=== PATIENT | male | born 1990 | race Caucasian/White ===

== ENCOUNTER 2016-12-30 12:05 | Observation (INO) ==
[2016-12-30] MEDS ORDERED: Ondansetron 4 MG/2 ML VIAL IVP ONE (15:32)
[2016-12-30] MEDS ORDERED: 0.9 % Sodium Chloride 1,000 ML IVC ONE (15:32)
--- NOTE | 2016-12-30 15:36 | Emergency Department Note ---
Disposition Clinical Impression: Nausea vomiting and diarrhea, Dehydration Leukocytosis Qualifiers: Leukocytosis type: unspecified Qualified Code(s): D72.829 - Elevated white blood cell count, unspecified Disposition: Admitted As Inpatient Condition: Fair Referrals: Joseph Carpenter DO [Primary Care Provider] - Forms: ED Satisfaction Letter Time of Disposition: 17:46 Nausea/Vomiting/Diarrhea HPI - General Chief complaint: ED Nausea/Vomiting/Diarrhea Stated complaint: seizures Time Seen by Provider: 12/30/16 15:27 Source: patient Mode of arrival: wheelchair Limitations: no limitations Nursing Notes Reviewed: Yes Vital Signs Reviewed: Yes - History of Present Illness HPI Narrative: 26-year-old history seizure disorder whose had vomiting and diarrhea for the last several hours. Patient has a history of seizure disorder is on Keppra and Vimpat and states he feels like he is going to have a seizure. Patient is pale and appears to be dry on arrival. He does answer questions appropriately. Patient states he just completed Augmentin 4 days ago. Pt Subjective Complaint: nausea, vomiting, diarrhea Onset (ago): hour(s) Description of emesis: food contents Description of Diarrhea: water If pain, Location of pain: diffuse Quality: cramping Consistency: intermittent Improves with: nothing Worsens with: eating Associated symptoms: Denies: fever/chills - Related Data Home Medications Medication Instructions Recorded Confirmed Lacosamide [Vimpat] 100 mg PO BID 12/17/16 12/17/16 LevETIRAcetam [Keppra] 1,500 mg PO BID 12/17/16 12/17/16 Omeprazole [PriLOSEC] 20 mg PO DAILY 12/17/16 12/17/16 Paroxetine [Paxil] 20 mg PO DAILY 12/17/16 12/17/16 Promethazine [Phenergan] 25 mg PO Q6H PRN 12/17/16 12/17/16 Previous Rx's Medication Instructions Recorded Amoxicillin/Clavulanate [Augmentin] 875 mg PO BIDWM #14 tablet 12/19/16 Nicotine Patch [Nicoderm] 14 mg TD DAILY PRN 12/19/16 Allergies Allergy/AdvReac Type Severity Reaction Status Date / Time alprazolam [From Xanax] Allergy Seizure Verified 12/17/16 12:28 decongestant AdvReac Vomiting Uncoded 12/17/16 12:28 All systems ED: reviewed and negative except as stated. Constitutional: Denies: fever, chills, weakness, weight change Eyes: Denies: eye pain, eye discharge, vision change ENT ED: Denies: ear pain, throat pain, dental pain, hearing loss, epistaxis, congestion, dysphagia Cardiovascular: Denies: chest pain, palpitations, dyspnea on exertion, edema, syncope Respiratory: Denies: cough, dyspnea, wheezes, hemoptysis, stridor Gastrointestinal: Reports: nausea, vomiting, diarrhea. Denies: abdominal pain, constipation, hematemesis, melena, hematochezia Genitourinary: Denies: urgency, dysuria, frequency, hematuria Musculoskeletal: Denies: back pain, neck pain, arthralgia, myalgia Integumentary: Denies: rash, abrasion, lesions Neurological: Reports: headache (Had a headache last night and none today.), other (States he feels like he is going to have a seizure). Denies: weakness, numbness, paresthesias, confusion, abnormal gait, vertigo Psychiatric: Denies: anxiety, depression, suicidal thoughts, homicidal thoughts , auditory hallucinations, visual hallucinations Endocrine: Denies: fatigue Hematological/Lymphatic: Denies: easy bleeding, easy bruising Allergic/Immunologic: Denies: facial swelling, urticaria Past Medical History - Past Medical History Medical history: Reports: seizures Surgical history: Reports: no surgical history Psychiatric history: Reports: anxiety, panic disorder - Social History Smoking Status: Current every day smoker Smokeless Tobacco Status: No Alcohol use: Reports: none Drug use: Reports: marijuana, prescription drug abuse Physical Exam - General Limitations: no limitations General appearance: alert, in no apparent distress - Head Head exam: atraumatic, normocephalic, normal inspection - Eye Eye exam: Present: normal appearance, PERRL, EOMI - ENT ENT exam: mucous membranes dry - Neck Neck exam: Present: normal inspection, full ROM, trachea midline - Chest Chest inspection: Present: normal inspection, symmetric chest wall rise - Respiratory Respiratory exam: Present: normal lung sounds bilaterally - Cardiovascular Cardiovascular exam: Present: regular rate, normal rhythm, normal heart sounds - Abdominal Exam Abdominal exam: Present: soft, Non-Tender. Absent: tenderness, distention, guarding, rebound, rigidity - Extremities Exam Extremities exam: Present: normal inspection, full ROM. Absent: tenderness, pedal edema - Expanded Lower Extremity Exam Neurovascular/Tendon exam: Absent: motor deficit, sensory deficit, tendon deficit Gait: not tested/not observed - Back Exam Back exam: Present: normal inspection, full ROM. Absent: tenderness - Neurological Exam Neurological exam: Present: alert, oriented X3 - Psychiatric Psychiatric exam: Present: normal affect, normal mood - Skin Skin exam: Present: warm, dry, intact, normal color Course - Reevaluation(s) Reevaluation #1: 26-year-old with multiple episodes of nausea vomiting diarrhea who arrives pale and appeared dehydrated. White count elevated at 27. He's had severe diarrhea. Patient just completed Augmentin. Concern for Clostridium difficile. Leukocytosis could be reactive. Time: 16:41 - Consultations Consultation #1: Discussed with , admit-would not give antibiotic coverage for C. difficile until stool cultures sent. Time: 17:45 Vital Signs Temperature 97.4 F L 12/30/16 12:13 Pulse Rate 92 12/30/16 12:13 Respiratory Rate 16 12/30/16 12:13 Blood Pressure 160/108 12/30/16 12:13 O2 Sat by Pulse Oximetry 98 12/30/16 12:13 Temperature 97.4 F L 12/30/16 12:13 Pulse Rate 101 12/30/16 15:31 Respiratory Rate 18 12/30/16 15:31 Blood Pressure 153/103 12/30/16 15:31 O2 Sat by Pulse Oximetry 100 12/30/16 15:31 Oxygen Delivery Oxygen Delivery Room Air Nausea/Vomiting/Diarrhea - Lab Data Result diagrams: 12/30/16 15:45 12/30/16 15:45 Lab Results 12/30/16 12/30/16 12/30/16 Range/Units 15:45 15:45 17:13 WBC 27.3 H (4.3-11.1) K/mcL RBC 4.91 (4.19-5.50) M/mcL Hgb 15.5 (12.9-16.9) g/dL Hct 45.4 (37.5-50.1) % MCV 92.5 (83.0-100.0) fL MCH 31.6 (28.0-33.3) pg MCHC 34.1 (31.6-35.5) g/dL RDW 12.8 (11.5-14.5) % Plt Count 197 (140-400) K/mcL MPV 9.8 (9.4-12.4) fL Immature Gran % 1.3 (0-4) % Seg Neutrophils % 89.2 % Lymphocytes % 5.7 % Monocytes % 3.5 % Eosinophils % 0.0 % Basophils % 0.3 % Neutrophils # 24.4 H (1.6-8.9) K/mcL Lymphocytes # 1.6 (0.6-4.6) K/mcL Monocytes # 1.0 (0.0-1.3) K/mcL Eosinophils # 0.0 (0.0-0.6) K/mcL Basophils # 0.1 (0.0-0.2) K/mcL Platelet Estimate Normal (Normal) Sodium 141 (136-145) mEq/L Potassium 3.8 (3.5-4.5) mEq/L Chloride 107 (98-109) mEq/L Carbon Dioxide 20 (19-29) mEq/L BUN 14 (8-26) mg/dL Creatinine 0.90 (0.72-1.25) mg/dL Est GFR ( Amer) > 60 (> 60) Est GFR (Non-Af Amer) > 60 (> 60) BUN/Creatinine Ratio 16 (6-26) Glucose 149 H (70-99) mg/dL Calculated Osmolality 295 (280-300) Calcium 9.7 (8.6-10.8) mg/dL Urine Color Yellow (Yellow) Urine Clarity Clear (Clear) Urine pH 8.0 (5.0-8.0) pH Units Ur Specific Vian 1.023 (1.010-1.025) Urine Protein Negative (Neg-Trace) mg/dL Urine Glucose (UA) Normal (Normal) mg/dL Urine Ketones 15 H (Negative) mg/dL Urine Blood Negative (Negative) Urine Nitrite Negative (Negative) Urine Bilirubin Negative (Negative) Urine Urobilinogen Normal (Normal) mg/dL Ur Leukocyte Esterase Negative (Negative) Ur Culture Indicated? NO (NO) - EKG Data EKG attestation: Yes I reviewed and interpreted this EKG. EKG shows normal: sinus rhythm Rate: normal Rhythm: NSR [place]/QRS: normal Interpretation: no acute changes
[2016-12-30 15:53] LABS: Basophils % 0.3 %
[2016-12-30 15:54] LABS: Basophils # 0.1 K/mcL (0.0-0.2); Hematocrit 45.4 % (37.5-50.1); Hemoglobin 15.5 g/dL (12.9-16.9); Immature Granulocytes % 1.3 % (0-4); Lymphocytes # 1.6 K/mcL (0.6-4.6); Lymphocytes % 5.7 %; Mean Corpuscular HGB Conc 34.1 g/dL (31.6-35.5); Mean Corpuscular Hemoglobin 31.6 pg (28.0-33.3); Mean Corpuscular Volume 92.5 fL (83.0-100.0); Mean Platelet Volume 9.8 fL (9.4-12.4); Monocytes % 3.5 %; Neutrophils # 24.4 K/mcL (1.6-8.9); Platelet Count 197 K/mcL (140-400); Red Blood Count 4.91 M/mcL (4.19-5.50); Red Cell Distribution Width 12.8 % (11.5-14.5); Segmented Neutrophils % 89.2 %
[2016-12-30 16:05] LABS: BUN/Creatinine Ratio 16 (6-26); Blood Urea Nitrogen 14 mg/dL (8-26); Calcium 9.7 mg/dL (8.6-10.8); Carbon Dioxide 20 mEq/L (19-29); Chloride 107 mEq/L (98-109); Glucose 149 mg/dL (70-99); Osmolality,Calculated 295 (280-300); Potassium 3.8 mEq/L (3.5-4.5); Sodium 141 mEq/L (136-145); eGFR For African Americans > 60 (> 60); eGFR For Non-African Americans > 60 (> 60)
[2016-12-30 16:34] LABS: Platelet Estimate Normal (Normal)
[2016-12-30 17:23] LABS: Bilirubin,Urine Negative (Negative); Blood,Urine Negative (Negative); Clarity,Urine Clear (Clear); Color,Urine Yellow (Yellow); Glucose,Urine (UA) Normal (Normal); Ketones,Urine 15 mg/dL (Negative); Leukocyte Esterase,Urine Negative (Negative); Nitrite,Urine Negative (Negative); Protein,Urine Negative (Neg-Trace); Specific Gravity,Urine 1.023 (1.010-1.025); Urobilinogen,Urine Normal (Normal)
--- NOTE | 2016-12-30 20:27 | Internal Med History&Physical ---
Date of Encounter: 12/30/16 Time of Encounter: 20:23 Assessment and Plan (1) Dehydration Current visit: Yes Status: Acute Patient appears clinically dehydrated likely secondary to nausea vomiting and diarrhea. He has decreased oral intake at this time and has severe retching and nausea which has been treated with IV Zofran in the ED. We will treat him with IV fluids. We will treat nausea with IV Phenergan. (2) Nausea vomiting and diarrhea Current visit: Yes Status: Acute Intractable nausea vomiting and diarrhea could be related to acute gastroenteritis. Given elevated white blood cell count and recent history of antibiotic use C. difficile colitis is also entering the differential. We will check stool C. difficile toxin. We will treat him with IV Phenergan. Nothing by mouth. (3) Cannabis abuse Current visit: No Status: Acute Could be related to his intractable nausea and vomiting. He could be suffering from cannabinoid hyperemesis syndrome. We will advise complete cessation of cannabis use. (4) Generalized anxiety disorder Current visit: No Status: Acute Continue with Paxil. (5) History of epilepsy Current visit: No Status: Acute Continue with Vimpat and Keppra. per old records review Keppra level on 12/17/2016 was 33 which was within the therapeutic range. I will not recheck Keppra levels today. Avoid Ativan 2 to adverse reaction described as seizure. We will use IV phenobarbital for treatment of seizures. (6) Tobacco use Current visit: No Status: Acute Nicotine patch. Internal Medicine - H&P: HPI Chief complaint: Nausea and vomiting Admitted From: Emergency Dept Plans for Post Hospital Care: Home History of present illness: Mr. Guan is a 26 year old male with past medical history significant for anxiety and seizure disorder presented to the hospital for evaluation of nausea and vomiting. He states he had severe nausea that started abruptly this morning , vomiting this afternoon, associated with 3 episodes of diarrhea described as soft bowel movement. He denied any associated seizure today. Denied any provoking factors any sick contacts and unusual foods. He states that he has severe associated anxiety and tingling in both hands. He has had a similar presentation 2 weeks ago when he was admitted to the hospital and her the patient's father's report he was given Ativan which triggered a seizure at that time. He does have an adverse reaction to Xanax which was confirmed by his father to be seizures. A 10 point review of systems otherwise negative except as above. Family history positive for cancer and heart disease in patient's father Social history: he admits to using marijuana regularly, denies alcohol abuse, he smokes 10 cigarettes a day. Past Med Surg Social Fam HX - Past Medical History Medical history: seizures Psychiatric history: anxiety, panic disorder - Past Surgical History Surgical History: no surgical history - Social History Smoking Status: Current every day smoker Smokeless Tobacco Status: No Alcohol use: none Drug use: marijuana, prescription drug abuse Internal Medicine - H&P: Meds Lacosamide [Vimpat] 100 mg PO BID 12/17/16 [History] LevETIRAcetam [Keppra] 1,500 mg PO BID 12/17/16 [History] Omeprazole [PriLOSEC] 20 mg PO DAILY 12/17/16 [History] Paroxetine [Paxil] 20 mg PO DAILY 12/17/16 [History] Promethazine [Phenergan] 25 mg PO Q6H PRN 12/17/16 [History] Nicotine Patch [Nicoderm] 14 mg TD DAILY PRN 12/19/16 [Rx] 3 Allergy/AdvReac Type Severity Reaction Status Date / Time alprazolam [From Xanax] Allergy Seizure Verified 12/17/16 12:28 decongestant AdvReac Vomiting Uncoded 12/17/16 12:28 All Systems PM: A 10-system review of systems was performed and is negative for pertinent findings except as documented above in the HPI. - Constitutional Vitals: Temp Pulse Resp BP Pulse Ox 97.4 F L 77 18 135/86 99 12/30/16 12:13 12/30/16 17:46 12/30/16 19:47 12/30/16 19:47 12/30/16 17:46 General appearance: Present: mild distress, A&O X 3 - Eye Eye exam: Present: PERRL, conjuntiva pink, sclera anicteric Pupils: Present: PERRL - Respiratory Respiratory exam: Present: CTAB. Absent: accessory muscle use, rales, rhonchi, wheezes - Cardiovascular Cardiovascular exam: Present: RRR, +S1, +S2. Absent: diastolic murmur, gallop, rubs, systolic murmur - GI/Abdominal GI/Abdominal exam: Present: normal bowel sounds, soft, no peritoneal signs. Absent: distended, tenderness - Extremities Exam Extremities exam: Present: warm, radial pulses palpable and symmetrical. Absent : calf tenderness, cyanotic, pedal edema - Skin Skin exam: Present: dry, intact Internal Med - H&P Results - Labs CBC & Chem 7: 12/30/16 15:45 12/30/16 15:45
[2016-12-30] MEDS ORDERED: Nicotine 14 MG PATCH.TD24 TD PRN (20:35)
[2016-12-30] MEDS ORDERED: *HR* Morphine 2 MG/ML SYRINGE IVP PRN (20:50)
[2016-12-30] MEDS ORDERED: Naloxone 0.4 MG/ML INJ IVP PRN (20:50)
[2016-12-30] MEDS: *HR* Promethazine 25 MG/ML VIAL IVP PRN (22:29)
[2016-12-30] MEDS: 0.9 % Sodium Chloride 1,000 ML IVC SCH (22:30)
[2016-12-31 06:46] LABS: BUN/Creatinine Ratio 10 (6-26); Blood Urea Nitrogen 8 mg/dL (8-26); Calcium 9.1 mg/dL (8.6-10.8); Carbon Dioxide 20 mEq/L (19-29); Chloride 110 mEq/L (98-109); Glucose 111 mg/dL (70-99); Osmolality,Calculated 289 (280-300); Potassium 3.6 mEq/L (3.5-4.5); Sodium 140 mEq/L (136-145); eGFR For African Americans > 60 (> 60); eGFR For Non-African Americans > 60 (> 60)
[2016-12-31 06:51] LABS: Amphetamine Screen,Urine Negative ng/mL (Cutoff=1000); Barbiturate Screen,Urine Negative ng/mL (Cutoff=200); Benzodiazepines Screen,Urine Negative ng/mL (Cutoff=200); Cannabinoid Screen,Urine Positive ng/mL (Cutoff = 50); Cocaine Screen,Urine Negative ng/mL (Cutoff= 300); Opiate Screen,Urine Negative ng/mL (Cutoff=300); Phencyclidine Screen,Urine Negative ng/mL (Cutoff=25)
[2016-12-31 06:52] LABS: Basophils % 0.2 %; Eosinophils % 0.1 %; Hematocrit 41.4 % (37.5-50.1); Hemoglobin 14.1 g/dL (12.9-16.9); Immature Granulocytes % 0.5 % (0-4); Lymphocytes # 1.6 K/mcL (0.6-4.6); Lymphocytes % 8.4 %; Mean Corpuscular HGB Conc 34.1 g/dL (31.6-35.5); Mean Corpuscular Hemoglobin 31.1 pg (28.0-33.3); Mean Corpuscular Volume 91.2 fL (83.0-100.0); Mean Platelet Volume 9.9 fL (9.4-12.4); Monocytes # 1.2 K/mcL (0.0-1.3); Monocytes % 6.6 %; Neutrophils # 15.5 K/mcL (1.6-8.9); Platelet Count 175 K/mcL (140-400); Red Blood Count 4.54 M/mcL (4.19-5.50); Red Cell Distribution Width 12.8 % (11.5-14.5); Segmented Neutrophils % 84.2 %
[2016-12-31] MEDS: 0.9 % Sodium Chloride 1,000 ML IVC SCH ×2 (07:25→16:14)
[2016-12-31] MEDS: *HR* Promethazine 25 MG/ML VIAL IVP PRN (07:28)
--- NOTE | 2016-12-31 14:01 | Internal Med Progress Note ---
Date of Encounter: 12/31/16 Time of Encounter: 13:51 - Assessment and plan (1) Nausea & vomiting Current Visit: No Status: Acute Assessment and plan: presented with intractable nausea, vomiting and 3 episodes of diarrhea that started morning of presentation. Etiology unknown at this time. Possible acute gastroenteritis, cannabinoid hyperemesis syndrome. WBC 27K, and recently on ATB , c. diff is possible as well. However WBC chronically elevated and no loose stool since presentation, low suspicion for infectious etiology. Sx's improved on 12/31/2016 exam, advance diet to clears, cont IV fluids, IV phenergan. Stool studies pending. Qualifiers: Vomiting type: unspecified Vomiting Intractability: non-intractable Qualified Code(s): R11.2 - Nausea with vomiting, unspecified (2) Leukocytosis Current Visit: Yes Status: Acute Assessment and plan: WBC 27K on arrival; per chart review WBC has been chronically elevated with no previous Hematology work-up. CXR unremarkable, UA not consistent with UTI. No obvious infectious source, afebrile, no tachycardia or hypotension. Hold on ATB. Peripheral blood smear ordered. Hematology consulted. Qualifiers: Leukocytosis type: unspecified Qualified Code(s): D72.829 - Elevated white blood cell count, unspecified (3) Seizure disorder Current Visit: Yes Status: Acute Assessment and plan: per hx. Cont home vimpat and keppra IV for now. Transition to PO when able to tolerate (4) DVT prophylaxis Current Visit: No Status: Acute Assessment and plan: heparin - Time Spent With Patient 25 - 35 minutes - Subjective Interval history: Seen and examined at bedside, says he feels a little better and want to try clear liquids. No loose stool since arrival to ED, he denies ABD pain. Regarding elevated WBC, he has not had previous Hematologic work-up, says he was given an ATB last week when he was here for elevated WBC - Constitutional Vitals: Temp Pulse Resp BP Pulse Ox 98.5 F 98 18 132/77 97 12/31/16 12:00 12/31/16 12:00 12/31/16 12:00 12/31/16 12:00 12/31/16 12:00 General appearance: Present: cachectic, mild distress, A&O X 3 - Head Head exam: Present: atraumatic, normocephalic - Eye Eye exam: Present: PERRL, conjuntiva pink, sclera anicteric Pupils: Present: PERRL - Neck Neck exam general surgery: Present: supple, trachea midline. Absent: lymphadenopathy - Respiratory Respiratory exam: Present: CTAB. Absent: accessory muscle use, rales, rhonchi, wheezes - Cardiovascular Cardiovascular exam: Present: RRR, +S1, +S2. Absent: diastolic murmur, gallop, rubs, systolic murmur - GI/Abdominal GI/Abdominal exam: Present: normal bowel sounds, soft, no peritoneal signs. Absent: distended, tenderness - Extremities Exam Extremities exam: Present: warm, radial pulses palpable and symmetrical. Absent : calf tenderness, cyanotic, pedal edema - Neurological Exam Neurological exam: Present: CN II-XII intact, oriented X3, no focal deficits. Absent: pronater drift, facial droop, speech deficit - Skin Skin exam: Present: dry, intact Internal Medicine: Result - Labs CBC & Chem 7: 12/31/16 06:22 12/31/16 06:22 Labs: Short CBC 12/31/16 Range/Units 06:22 WBC 18.4 H (4.3-11.1) K/mcL Hgb 14.1 (12.9-16.9) g/dL Hct 41.4 (37.5-50.1) % Plt Count 175 (140-400) K/mcL Neutrophils # 15.5 H (1.6-8.9) K/mcL BMP 12/31/16 06:22 Sodium 140 Potassium 3.6 Chloride 110 H Carbon Dioxide 20 BUN 8 Creatinine 0.79 Glucose 111 H Calcium 9.1 Consult Discharge Plan - Plan Referrals: Joseph Carpenter DO [Primary Care Provider] -
--- NOTE | 2016-12-31 17:24 | Oncology Inp Consult Note ---
Date of Encounter: 12/31/16 Time of Encounter: 17:17 Assessment and Plan (1) Leukocytosis Status: Acute Assessment and plan: - I discussed with Mr. Guan the differential diagnosis of chronic leucocytosis/ neutrophilia. This include primary bone marrow disorders and secondary causes such as infectious, stress/anxiety and smoking. I explained him that in view that his blood smear showed not immature WBC such as blasts as well as that his CBC shows normal platelet and red cell counts, the more likely diagnosis is a reactive process. Probably smoking is the main culprit. I explained him the best way to confirm the diagnosis would be to quit smoking and repeat a CBC after 4-6 weeks; by then we would expect normalization of his neutrophilia/ leucocytosis. He expressed understanding. - At this time I would recommend to continue to monitor his CBC in an outpatient basis, probably every 3 months would be reasonable. If he develops cytopenias ( either thrombocytopenia or anemia), a bone marrow biopsy would be needed. - Please set up a follow up with outpatient hematology ( at [facility]) . Qualifiers: Leukocytosis type: unspecified Qualified Code(s): D72.829 - Elevated white blood cell count, unspecified - Data of Consult Requesting Physician: Estrella Mojica MD Primary Care Provider: Joseph Carpenter, - Consult Narrative Reason for consult: leucocytosis History of present illness: Mr. Guan is a 26 year old male with history of seizure disorder, leucocytosis presenting to the ED with intractable nauseas, vomiting. Hematology consult requested due to leucocytosis. Upon review of records, Mr. Guan has documented leucocytosis since November 30, 2013. At that time his WBC value was 12.7 K. His leucocytosis has been fluctuating since then from normal values ( in April 2014, June 2014, Feb 2015) with a peak of 28K in December 2015. He reports being on keppra for at least a couple of years. He reports a chronic history of anxiety, smoking use ( approximately 1/2 PPD). He also reports smoking marihuana. His WBC count peaked on December 18, then his counts dropped to 14K on December 19. Today's values are: 18K. His differential showed neutrophilia. His other cell count s ( platelets and red blood cells) have remained within normal parameters. He denies any history of recurrent fever, night sweats or palpable lymphadenopathy. He was admitted with a clinical picture suggestive of gastro enteritis: diarrhea, nausea, vomiting; reports improvement of his diarrheic symptoms, as well as his anxiety since admission. He reports living with his parents. Reports currently being unemployed, no in college ( reports being expulsated in 11 grade, what he attributes to his anxiety). He reports not family history of hematologic or solid malignancies, although reports that his sister has been diagnosed with a blood condition ( from he does not have further knowledge). Past Med Surg Social Fam HX - Past Medical History Medical history: seizures Psychiatric history: anxiety, panic disorder - Past Surgical History Surgical History: no surgical history - Social History Smoking Status: Current every day smoker Smokeless Tobacco Status: No Alcohol use: none Drug use: marijuana, prescription drug abuse - Family History Father Hx Family Neurologic Disorders: Yes (Depression/Anxiety) Medications and Allergies Lacosamide [Vimpat] 100 mg PO BID 12/17/16 [History] LevETIRAcetam [Keppra] 1,500 mg PO BID 12/17/16 [History] Omeprazole [PriLOSEC] 20 mg PO DAILY 12/17/16 [History] Paroxetine [Paxil] 20 mg PO DAILY 12/17/16 [History] Promethazine [Phenergan] 25 mg PO Q6H PRN 12/17/16 [History] Nicotine Patch [Nicoderm] 14 mg TD DAILY PRN 12/19/16 [Rx] 3 Allergy/AdvReac Type Severity Reaction Status Date / Time alprazolam [From Xanax] Allergy Seizure Verified 12/17/16 12:28 decongestant AdvReac Vomiting Uncoded 12/17/16 12:28 Constitutional: Present: fatigue. Absent: fever(s), frequent falls, night sweats Cardiovascular: Absent: diaphoresis, edema, leg ulcers Respiratory: Absent: cough, dyspnea, hemoptysis Gastrointestinal: Absent: dyspepsia, dysphagia, hematemesis, hematochezia Musculoskeletal: Absent: abnormal gait Neurological: Present: convulsions. Absent: abnormal gait, abnormal hearing Psychiatric: Absent: hallucinations Hematologic/Lymphatic: Present: as per HPI Oncology - Exam - Constitutional Vitals: Temp Pulse Resp BP Pulse Ox 98.0 F 92 18 116/75 97 12/31/16 15:37 12/31/16 15:37 12/31/16 15:37 12/31/16 15:37 12/31/16 15:37 - Head Head exam: Present: normal inspection, normocephalic - Eye Eye exam: Present: EOMI, normal appearance. Absent: nystagmus - ENT ENT exam: Present: normal exam, normal oropharynx - Neck Neck exam: Absent: lymphadenopathy, tenderness - Respiratory Respiratory exam: Present: CTAB. Absent: prolonged expiratory phase - Cardiovascular Cardiovascular exam: Present: RRR, +S1. Absent: diastolic murmur - GI/Abdominal GI/Abdominal exam: Present: normal bowel sounds. Absent: organomegaly - Extremities Exam Extremities exam: Present: normal inspection. Absent: pedal edema, tenderness - Back Exam Back exam: Present: normal inspection. Absent: paraspinal tenderness - Neurological Exam Neurological exam: Present: alert, CN II-XII intact, oriented X3. Absent: altered - Psychiatric Psychiatric exam: Present: anxious Oncology - Results Labs: Short CBC 12/31/16 Range/Units 06:22 WBC 18.4 H (4.3-11.1) K/mcL Hgb 14.1 (12.9-16.9) g/dL Hct 41.4 (37.5-50.1) % Plt Count 175 (140-400) K/mcL Neutrophils # 15.5 H (1.6-8.9) K/mcL BMP 12/31/16 06:22 Sodium 140 Potassium 3.6 Chloride 110 H Carbon Dioxide 20 BUN 8 Creatinine 0.79 Glucose 111 H Calcium 9.1 Consult Discharge Plan - Plan Referrals: Joseph Carpenter DO [Primary Care Provider] -
--- NOTE | 2016-12-31 19:12 | Electrocardiograph Report ---
[address] [place] [address] Test Date: 2016-12-30 Pat Name: Naseem Guan Department: 102 Room: 3A48 Gender: M Science Tutor: Jax : 1990 Requested By: Estrella Mojica Order Number: [id number] Reading MD: Cata Eckert Measurements Intervals Arnett Rate: 67 P: 59 MS: 146 QRS: 74 QRSD: 93 T: 40 QT: 376 QTc: 391 Interpretive Statements SINUS RHYTHM WITH SINUS ARRHYTHMIA WARNING: DATA QUALITY MAY AFFECT INTERPRETATION Electronically Signed On 12-31-2016 19:11:32 EDT by Cata Eckert
[2016-12-31] MEDS: *HR* Heparin 5,000 UNIT/ML VIAL SQ SCH (21:38)
[2016-12-31] MEDS ORDERED: diazePAM 5 MG TABLET PO ONE (21:40)
[2017-01-01] MEDS ORDERED: diazePAM 5 MG TABLET PO ONE (00:27)
[2017-01-01] MEDS: 0.9 % Sodium Chloride 1,000 ML IVC SCH ×2 (00:52→09:16)
[2017-01-01] MEDS: *HR* Heparin 5,000 UNIT/ML VIAL SQ SCH (05:51)
[2017-01-01 05:52] LABS: Basophils # 0.1 K/mcL (0.0-0.2); Basophils % 0.4 %; Eosinophils # 0.1 K/mcL (0.0-0.6); Eosinophils % 0.4 %; Hematocrit 46.7 % (37.5-50.1); Immature Granulocytes % 0.4 % (0-4); Lymphocytes # 2.8 K/mcL (0.6-4.6); Lymphocytes % 21.9 %; Mean Corpuscular HGB Conc 33.6 g/dL (31.6-35.5); Mean Corpuscular Hemoglobin 31.3 pg (28.0-33.3); Mean Corpuscular Volume 93.2 fL (83.0-100.0); Mean Platelet Volume 10.1 fL (9.4-12.4); Monocytes # 0.8 K/mcL (0.0-1.3); Monocytes % 6.5 %; Neutrophils # 9.1 K/mcL (1.6-8.9); Platelet Count 146 K/mcL (140-400); Red Blood Count 5.01 M/mcL (4.19-5.50); Red Cell Distribution Width 12.8 % (11.5-14.5); Segmented Neutrophils % 70.4 %
[2017-01-01 05:53] LABS: Hemoglobin 15.7 g/dL (12.9-16.9)
[2017-01-01 06:18] LABS: Alanine Aminotransferase 39 Units/L (0-55); Albumin 4.3 g/dL (3.5-5.0); Albumin/Globulin Ratio 1.3 (1.1-2.2); Alkaline Phosphatase 58 Units/L (38-126); Aspartate Amino Transferase 26 Units/L (5-34); BUN/Creatinine Ratio 12 (6-26); Blood Urea Nitrogen 10 mg/dL (8-26); Carbon Dioxide 19 mEq/L (19-29); Chloride 108 mEq/L (98-109); Globulin 3.2 g/dL (2.4-3.5); Glucose 86 mg/dL (70-99); Osmolality,Calculated 286 (280-300); Potassium 3.8 mEq/L (3.5-4.5); Sodium 139 mEq/L (136-145); Total Protein 7.5 g/dL (6.0-8.3); eGFR For African Americans > 60 (> 60); eGFR For Non-African Americans > 60 (> 60)
[2017-01-01 10:46] VITALS: BP 130/66
--- NOTE | 2017-01-01 13:58 | Discharge Summary ---
Date of Encounter: 01/01/17 Time of Encounter: 13:55 - Discharge Diagnosis (1) Nausea & vomiting Priority: Primary Status: Acute Comments: Jose R Whipple is a 26-year-old male with past medical history seizure disorder and tobacco use who presented to [facility] on 12/30/2016 with complaints of nausea and vomiting. He was placed in observation status for further workup and treatment. His symptoms improved with IV antiemetics and IV fluids. He was evaluated by hematology for his chronic leukocytosis is suspected secondary to smoking. Smoking cessation was advised. He was discharged home in stable condition. Nausea and vomiting: presented with intractable nausea, vomiting and 3 episodes of diarrhea that started morning of presentation. Etiology unknown at this time. Possible acute gastroenteritis, cannabinoid hyperemesis syndrome. WBC 27K , and recently on ATB, c. diff is possible as well. However WBC chronically elevated and no loose stool since presentation, low suspicion for infectious etiology. He did not have a bowel movement while inpatient, therefore stool studies are C. difficile PCR were not obtained. Sx's improved with IV fluids and IV antiemetics. No nausea or vomiting at time of discharge tolerating by mouth without difficulty. Was advised on marijuana cessation. Can follow up with outpatient PCP. Qualifiers: Vomiting type: unspecified Vomiting Intractability: non-intractable Qualified Code(s): R11.2 - Nausea with vomiting, unspecified (2) Leukocytosis Priority: Primary Status: Acute Comments: WBC 27K on arrival; per chart review WBC has been chronically elevated with no previous Hematology work-up. CXR unremarkable, UA not consistent with UTI. No obvious infectious source, afebrile, no tachycardia or hypotension. Hold on ATB. Peripheral blood smear without circulating blasts. He was evaluated by hematology who suspects a reactive process, likely secondary to smoking. Smoking cessation advised. Will need CBC monitored per PCP every 3 months; if he develops cytopenias ( either thrombocytopenia or anemia), a bone marrow biopsy would be needed. Recommend repeat CBC in 4-6 weeks with PCP. Qualifiers: Leukocytosis type: unspecified Qualified Code(s): D72.829 - Elevated white blood cell count, unspecified (3) Seizure disorder Priority: Primary Status: Acute Comments: Per history. No evidence of seizure activity while inpatient. Continue home AEDs. Follow-up as previously planned. - Discharge Medications Prescriptions: Nicotine Patch [Nicoderm] 14 mg TD DAILY PRN #30 patch.td24 PRN Reason: Nicotine cravings Home Medications: Lacosamide [Vimpat] 100 mg PO BID 12/17/16 [History] LevETIRAcetam [Keppra] 1,500 mg PO BID 12/17/16 [History] Omeprazole [PriLOSEC] 20 mg PO DAILY 12/17/16 [History] Paroxetine [Paxil] 20 mg PO DAILY 12/17/16 [History] Promethazine [Phenergan] 25 mg PO Q6H PRN 12/17/16 [History] Nicotine Patch [Nicoderm] 14 mg TD DAILY PRN 12/19/16 [Rx] Nicotine Patch [Nicoderm] 14 mg TD DAILY PRN #30 patch.td24 01/01/17 [Rx] Allergies/Adverse Reactions: 3 Allergy/AdvReac Type Severity Reaction Status Date / Time alprazolam [From Xanax] Allergy Seizure Verified 12/17/16 12:28 decongestant AdvReac Vomiting Uncoded 12/17/16 12:28 Procedures/tests Complete & Pending: Procedures Performed prior 72 hours Category Date Time Status ECG 12 lead ECG [ECG] Routine Y 12/30/16 15:33 Completed Date of admission: 12/30/16 19:18 Primary care physician: Joseph Carpenter, Consults: 12/31/16 13:44 Consult to Oncology Hematology [CONS] Routine Consulting Provider: Justino Zhu I Reason for Consult: lleukocytosis Call Completed: Yes Discharging clinician: Courtney Montanez Anticipated date of discharge: 01/01/17 - Patient Status Disposition: Home, Self-Care Condition: Good Functional capacity at discharge: independent ambulation Overall status at discharge: patient is back to baseline - Discharge Instructions Follow Up With: Joseph Carpenter, [Primary Care Provider] - - Diet and Activity Activity: increase activity as tolerated Diet: advance to your usual diet Interval History: Seen and examined at bedside. Patient says he feels 100% better and is back to baseline. No further nausea vomiting no further loose stool. He is hungry and wants to eat and go home. Strongly advised smoking cessation and follow-up with PCP for monitoring of blood work. He has no complaints on my exam. Hospital course: Mr. Guan is a 26 year old male Time spent discussing smoking cessation with patient: 3 to 10 minutes (Nicotine replacement ordered at discharge.) - Time Spent with Patient Total time spent providing and/or coordinating discharge services: Less than 30 minutes - Constitutional Vitals: Temp Pulse Resp BP Pulse Ox 97.8 F 75 18 130/66 98 01/01/17 10:40 01/01/17 10:40 01/01/17 10:40 01/01/17 10:40 01/01/17 10:40 General appearance: Present: cachectic, mild distress, A&O X 3 - Head Head exam: Present: atraumatic, normocephalic - Eye Eye exam: Present: PERRL, conjuntiva pink, sclera anicteric Pupils: Present: PERRL - Neck Neck exam general surgery: Present: supple, trachea midline. Absent: lymphadenopathy - Respiratory Respiratory exam: Present: CTAB. Absent: accessory muscle use, rales, rhonchi, wheezes - Cardiovascular Cardiovascular exam: Present: RRR, +S1, +S2. Absent: diastolic murmur, gallop, rubs, systolic murmur - GI/Abdominal GI/Abdominal exam: Present: normal bowel sounds, soft, no peritoneal signs. Absent: distended, tenderness - Extremities Exam Extremities exam: Present: warm, radial pulses palpable and symmetrical. Absent : calf tenderness, cyanotic, pedal edema - Neurological Exam Neurological exam: Present: CN II-XII intact, oriented X3, no focal deficits. Absent: pronater drift, facial droop, speech deficit - Skin Skin exam: Present: dry, intact
== END 2017-01-01 15:00 | disposition home or self-care (01) ==
LOC: 3ANU 12:05 → EMEROO 12:05 → 3ANU 20:29
PROVIDERS: ADMIT Internal Medicine; ATTEND Internal Medicine

== ENCOUNTER 2017-02-11 12:03 | Observation (INO) ==
--- NOTE | 2017-02-11 13:02 | Emergency Department Note ---
Disposition Clinical Impression: Altered mental status Qualifiers: Altered mental status type: somnolence Qualified Code(s): R40.0 - Somnolence Disposition: Admitted As Inpatient Condition: Good Referrals: Joseph Carpenter DO [Primary Care Provider] - Forms: ED Satisfaction Letter Time of Disposition: 15:05 General Adult HPI - General Chief complaint: ED Seizure Stated complaint: feel like going to have seizure Time Seen by Provider: 02/11/17 12:23 Source: patient, family Limitations: no limitations Nursing Notes Reviewed: Yes Vital Signs Reviewed: Yes - History of Present Illness HPI Narrative: 26-year-old male presents with his father with complaining of retching nausea and vomiting and just not feeling himself. Patient is a complex seizure disorder which she is managed currently by a neurologist at the [facility]. He was admitted for similar presentation at [facility] at the end of December. Please refer to that note for the ED evaluation and medical service H&P management and discharge. Currently he is on Vimpat and Keppra. There has been no changes in his medicines. Per the patient's father patient awoke at 9 AM and is just been tired and retching and not acting himself ever since. The father states that the patient normally is "out of it" before he had a seizure. Patient was able to respond to questions here says he just feels weak and very tired. Denies any illicit drug use other than marijuana. Pain Scale: 2 - Related Data Home Medications Medication Instructions Recorded Confirmed Lacosamide [Vimpat] 100 mg PO BID 12/17/16 12/30/16 LevETIRAcetam [Keppra] 1,500 mg PO BID 12/17/16 12/30/16 Omeprazole [PriLOSEC] 20 mg PO DAILY 12/17/16 12/30/16 Paroxetine [Paxil] 20 mg PO DAILY 12/17/16 12/30/16 Promethazine [Phenergan] 25 mg PO Q6H PRN 12/17/16 12/30/16 Previous Rx's Medication Instructions Recorded Nicotine Patch [Nicoderm] 14 mg TD DAILY PRN 12/19/16 Nicotine Patch [Nicoderm] 14 mg TD DAILY PRN #30 patch.td24 01/01/17 Allergies Allergy/AdvReac Type Severity Reaction Status Date / Time alprazolam [From Xanax] Allergy Seizure Verified 02/11/17 12:16 decongestant AdvReac Vomiting Uncoded 02/11/17 12:16 All systems ED: reviewed and negative except as stated. Constitutional: Reports: weakness Neurological: Reports: other (Prolonged altered state secondary to seizure) Past Medical History - Past Medical History Attestation: Yes The following information was validated with the patient. Source: patient, old records reviewed, obtained from family Medical history: Reports: seizures Surgical history: Reports: no surgical history Psychiatric history: Reports: anxiety, panic disorder - Social History Smoking Status: Current every day smoker Smokeless Tobacco Status: No Alcohol use: Reports: none Drug use: Reports: marijuana, prescription drug abuse Physical Exam - General Limitations: no limitations General appearance: alert, in no apparent distress - Head Head exam: atraumatic, normocephalic - Eye Eye exam: Present: normal appearance, PERRL, EOMI - ENT ENT exam: normal exam, normal oropharynx - Neck Neck exam: Present: normal inspection, full ROM - Chest Chest inspection: Present: normal inspection, symmetric chest wall rise - Respiratory Respiratory exam: Present: normal lung sounds bilaterally. Absent: respiratory distress - Cardiovascular Cardiovascular exam: Present: regular rate, normal rhythm - Abdominal Exam Abdominal exam: Present: soft, Non-Tender - Extremities Exam Extremities exam: Present: normal inspection - Expanded Lower Extremity Exam Hip/Pelvis exam: Present: normal inspection, full ROM - Back Exam Back exam: Present: normal inspection, full ROM - Skin Skin exam: Present: warm, dry, intact, pallor Course - Reevaluation(s) Reevaluation #1: Patient was reevaluated still very fatigued almost somnolent but follows commands maintaining airway without issue. CBC shows elevated white count of 17.5 but it has been higher in the past chemistry panel within normal limits R screen positive for marijuana which the patient amidst using. Noncontrast head CT read by radiologist acute process. Discussed the findings with the patient and his father present in the requested admission which is reasonable patient discussed with the hospitalist Dr. Coffey who accept the patient for admission in stable condition. Admission orders placed. Vital Signs Temperature 97.6 F 02/11/17 12:13 Pulse Rate 64 02/11/17 12:13 Respiratory Rate 16 02/11/17 12:13 Blood Pressure 152/101 02/11/17 12:13 O2 Sat by Pulse Oximetry 99 02/11/17 12:13 Temperature 97.6 F 02/11/17 12:13 Pulse Rate 74 02/11/17 13:37 Respiratory Rate 14 02/11/17 13:37 Blood Pressure 140/99 02/11/17 13:37 O2 Sat by Pulse Oximetry 100 02/11/17 13:37 Oxygen Delivery Oxygen Delivery Room Air Medical Decision Making - Lab Data Result diagrams: 02/11/17 13:14 02/11/17 13:14 Lab Results 02/11/17 02/11/17 02/11/17 Range/Units 13:14 13:14 13:43 WBC 17.5 H (4.3-11.1) K/mcL RBC 4.81 (4.19-5.50) M/mcL Hgb 15.3 (12.9-16.9) g/dL Hct 45.0 (37.5-50.1) % MCV 93.6 (83.0-100.0) fL MCH 31.8 (28.0-33.3) pg MCHC 34.0 (31.6-35.5) g/dL RDW 12.6 (11.5-14.5) % Plt Count 178 (140-400) K/mcL MPV 10.4 (9.4-12.4) fL Immature Gran % 0.6 (0-4) % Seg Neutrophils % 85.8 % Lymphocytes % 9.1 % Monocytes % 4.2 % Eosinophils % 0.1 % Basophils % 0.2 % Neutrophils # 15.0 H (1.6-8.9) K/mcL Lymphocytes # 1.6 (0.6-4.6) K/mcL Monocytes # 0.7 (0.0-1.3) K/mcL Eosinophils # 0.0 (0.0-0.6) K/mcL Basophils # 0.0 (0.0-0.2) K/mcL Sodium 139 (136-145) mEq/L Potassium 5.1 H (3.5-4.5) mEq/L Chloride 105 (98-109) mEq/L Carbon Dioxide 20 (19-29) mEq/L BUN 13 (8-26) mg/dL Creatinine 1.05 (0.72-1.25) mg/dL Est GFR ( Amer) > 60 (> 60) Est GFR (Non-Af Amer) > 60 (> 60) BUN/Creatinine Ratio 12 (6-26) Glucose 174 H (70-99) mg/dL Calculated Osmolality 292 (280-300) Calcium 9.7 (8.6-10.8) mg/dL Urine Color Yellow (Yellow) Urine Clarity Hazy (Clear) Urine pH 8.0 (5.0-8.0) pH Units Ur Specific [place] 1.019 (1.010-1.025) Urine Protein Trace (Neg-Trace) mg/dL Urine Glucose (UA) Normal (Normal) mg/dL Urine Ketones Negative (Negative) mg/dL Urine Blood Negative (Negative) Urine Nitrite Negative (Negative) Urine Bilirubin Negative (Negative) Urine Urobilinogen Normal (Normal) mg/dL Ur Leukocyte Esterase Negative (Negative) Urine Microscopic RBC 0-3 (0-3) per hpf Urine Microscopic WBC 0-3 (0-3) per hpf Ur Squamous Epith Cells Moderate H (None-Few) per lpf Urine Bacteria None Seen (None-Few) per hpf Hyaline Casts None Seen (None-Few) per lpf Urine Opiates Screen (Ontbmr=958) ng/mL Ur Barbiturates Screen (Dzonya=735) ng/mL Ur Phencyclidine Scrn (Cutoff=25) ng/mL Ur Amphetamines Screen (Mjbyzg=2503) ng/mL U Benzodiazepines Scrn (Kyhvdf=865) ng/mL Urine Cocaine Screen (Cutoff= 300) ng/mL U Marijuana (THC) Screen (Cutoff = 50) ng/mL 02/11/17 Range/Units 13:43 WBC (4.3-11.1) K/mcL RBC (4.19-5.50) M/mcL Hgb (12.9-16.9) g/dL Hct (37.5-50.1) % MCV (83.0-100.0) fL MCH (28.0-33.3) pg MCHC (31.6-35.5) g/dL RDW (11.5-14.5) % Plt Count (140-400) K/mcL MPV (9.4-12.4) fL Immature Gran % (0-4) % Seg Neutrophils % % Lymphocytes % % Monocytes % % Eosinophils % % Basophils % % Neutrophils # (1.6-8.9) K/mcL Lymphocytes # (0.6-4.6) K/mcL Monocytes # (0.0-1.3) K/mcL Eosinophils # (0.0-0.6) K/mcL Basophils # (0.0-0.2) K/mcL Sodium (136-145) mEq/L Potassium (3.5-4.5) mEq/L Chloride (98-109) mEq/L Carbon Dioxide (19-29) mEq/L BUN (8-26) mg/dL Creatinine (0.72-1.25) mg/dL Est GFR ( Amer) (> 60) Est GFR (Non-Af Amer) (> 60) BUN/Creatinine Ratio (6-26) Glucose (70-99) mg/dL Calculated Osmolality (280-300) Calcium (8.6-10.8) mg/dL Urine Color (Yellow) Urine Clarity (Clear) Urine pH (5.0-8.0) pH Units Ur Specific [place] (1.010-1.025) Urine Protein (Neg-Trace) mg/dL Urine Glucose (UA) (Normal) mg/dL Urine Ketones (Negative) mg/dL Urine Blood (Negative) Urine Nitrite (Negative) Urine Bilirubin (Negative) Urine Urobilinogen (Normal) mg/dL Ur Leukocyte Esterase (Negative) Urine Microscopic RBC (0-3) per hpf Urine Microscopic WBC (0-3) per hpf Ur Squamous Epith Cells (None-Few) per lpf Urine Bacteria (None-Few) per hpf Hyaline Casts (None-Few) per lpf Urine Opiates Screen Negative (Opgrel=023) ng/mL Ur Barbiturates Screen Negative (Vjxmox=562) ng/mL Ur Phencyclidine Scrn Negative (Cutoff=25) ng/mL Ur Amphetamines Screen Negative (Qbvctp=8420) ng/mL U Benzodiazepines Scrn Negative (Vfwezu=686) ng/mL Urine Cocaine Screen Negative (Cutoff= 300) ng/mL U Marijuana (THC) Screen Positive H (Cutoff = 50) ng/mL
[2017-02-11] MEDS ORDERED: 0.9 % Sodium Chloride 1,000 ML IVC ONE ×2 (13:11→23:35)
[2017-02-11 13:22] LABS: Basophils % 0.2 %; Eosinophils % 0.1 %; Hemoglobin 15.3 g/dL (12.9-16.9); Immature Granulocytes % 0.6 % (0-4); Lymphocytes # 1.6 K/mcL (0.6-4.6); Lymphocytes % 9.1 %; Mean Corpuscular Hemoglobin 31.8 pg (28.0-33.3); Mean Corpuscular Volume 93.6 fL (83.0-100.0); Mean Platelet Volume 10.4 fL (9.4-12.4); Monocytes # 0.7 K/mcL (0.0-1.3); Monocytes % 4.2 %; Platelet Count 178 K/mcL (140-400); Red Blood Count 4.81 M/mcL (4.19-5.50); Red Cell Distribution Width 12.6 % (11.5-14.5); Segmented Neutrophils % 85.8 %
[2017-02-11 13:34] LABS: BUN/Creatinine Ratio 12 (6-26); Blood Urea Nitrogen 13 mg/dL (8-26); Calcium 9.7 mg/dL (8.6-10.8); Carbon Dioxide 20 mEq/L (19-29); Chloride 105 mEq/L (98-109); Glucose 174 mg/dL (70-99); Osmolality,Calculated 292 (280-300); Potassium 5.1 mEq/L (3.5-4.5); Sodium 139 mEq/L (136-145); eGFR For African Americans > 60 (> 60); eGFR For Non-African Americans > 60 (> 60)
[2017-02-11] MEDS ORDERED: *HR* Promethazine 25 MG/ML VIAL IVP ONE (13:42)
[2017-02-11 13:57] LABS: Bilirubin,Urine Negative (Negative); Blood,Urine Negative (Negative); Color,Urine Yellow (Yellow); Glucose,Urine (UA) Normal (Normal); Ketones,Urine Negative (Negative); Leukocyte Esterase,Urine Negative (Negative); Nitrite,Urine Negative (Negative); Protein,Urine Trace mg/dL (Neg-Trace); Specific Gravity,Urine 1.019 (1.010-1.025); Urobilinogen,Urine Normal (Normal)
[2017-02-11 13:59] LABS: Bacteria,Urine None Seen per hpf (None-Few); Hyaline Casts,Urine None Seen per lpf (None-Few); RBC,Urine 0-3 per hpf (0-3); Squamous Epithelial Cell,Urine Moderate per lpf (None-Few); WBC,Urine 0-3 per hpf (0-3)
[2017-02-11 14:00] LABS: Clarity,Urine Hazy (Clear)
[2017-02-11 14:16] LABS: Amphetamine Screen,Urine Negative ng/mL (Cutoff=1000); Barbiturate Screen,Urine Negative ng/mL (Cutoff=200); Benzodiazepines Screen,Urine Negative ng/mL (Cutoff=200); Cannabinoid Screen,Urine Positive ng/mL (Cutoff = 50); Cocaine Screen,Urine Negative ng/mL (Cutoff= 300); Opiate Screen,Urine Negative ng/mL (Cutoff=300); Phencyclidine Screen,Urine Negative ng/mL (Cutoff=25)
[2017-02-11] MEDS ORDERED: Acetaminophen 325 MG TABLET PO PRN (16:25)
[2017-02-11] MEDS ORDERED: Naloxone 0.4 MG/ML INJ IVP PRN (16:25)
[2017-02-11] MEDS ORDERED: 0.9 % Sodium Chloride 1,000 ML IVC SCH (16:30)
[2017-02-11] MEDS: *HR* Promethazine 25 MG/ML VIAL IVP PRN ×2 (17:09→23:41)
--- NOTE | 2017-02-11 17:47 | Internal Med History&Physical ---
<Shyanne Posadas - Last Filed: 02/11/17 18:22> Date of Encounter: 02/11/17 Time of Encounter: 17:00 Assessment and Plan (1) Nausea & vomiting Current visit: No Status: Acute 1 unsure of etiology- do not suspect this to be infectious. Maybe related to marijuana use. We will continue with Phenergan and IV fluids Nothing by mouth for now advance diet as tolerated Qualifiers: Vomiting type: unspecified Vomiting Intractability: non-intractable Qualified Code(s): R11.2 - Nausea with vomiting, unspecified (2) Cannabis abuse Current visit: No Status: Chronic 1 patient has a past history of cannabis use. Last use was 10 AM. Tox screen positive for Cannabis Encouraged patient to stop smoking. Suspect this may be contributing to his nausea and vomiting canabinoid hyperemesis syndrome (3) Elevated WBC count Current visit: No Status: Chronic patient has chronic elevation of white count- today 17.5 - was seen by hemoncology on last admission - suspected reactive process- advised to quit smoking and to follow up CBC in 4-6 weeks. No sign of infectious process at this time . Qualifiers: Leukocytosis type: unspecified Qualified Code(s): D72.829 - Elevated white blood cell count, unspecified (4) History of epilepsy Current visit: No Status: Acute Presently no seizure activity. Continue with seizure precautions. continue with Lacosamide and keppra. Consult neurology as needed (5) DVT prophylaxis Current visit: No Status: Acute SCD placement Internal Medicine - H&P: HPI Chief complaint: Nausea and vomiting Admitted From: Emergency Dept Plans for Post Hospital Care: Home History of present illness: Mr. Guan is a 26 year old male passed with a history of seizures anxiety / depression. Patient has been experiencing nausea and vomiting starting this a.m. He has not been able to eat or drink. According to his father he gets like this prior to having a seizure. Patient's last seizure was in December, he does see a neurologist at [facility] for seizure management. He has not had any seizure activity today. He does admit to smoking marijuana at 10 AM this morning and states he has been taking his medications as prescribed. He is hemodynamically stable at this time. He has been admitted for further workup evaluation. Past Med Surg Social Fam HX - Past Medical History Medical history: seizures Psychiatric history: anxiety, panic disorder - Past Surgical History Surgical History: no surgical history - Social History Smoking Status: Current every day smoker Smokeless Tobacco Status: No Alcohol use: none Drug use: marijuana, prescription drug abuse - Family History Father Hx Family Neurologic Disorders: Yes (Depression/Anxiety) Internal Medicine - H&P: Meds Lacosamide [Vimpat] 100 mg PO BID 12/17/16 [History] LevETIRAcetam [Keppra] 1,500 mg PO BID 12/17/16 [History] Omeprazole [PriLOSEC] 20 mg PO DAILY 12/17/16 [History] Promethazine [Phenergan] 25 mg PO Q6H PRN 12/17/16 [History] Citalopram Hydrobromide [Citalopram HBr] 10 mg PO DAILY 02/11/17 [History] clonazePAM [Klonopin] 1 mg PO TID 02/11/17 [History] 3 Allergy/AdvReac Type Severity Reaction Status Date / Time alprazolam [From Xanax] Allergy Seizure Verified 02/11/17 12:16 decongestant AdvReac Vomiting Uncoded 02/11/17 12:16 All Systems PM: A 10-system review of systems was performed and is negative for pertinent findings except as documented above in the HPI. - Constitutional Constitutional: no chills, no fever(s), no night sweats - EENT Eyes: no change in vision, no discharge, no pain, no photophobia Nose, mouth and throat: no dysphagia, no nasal discharge, no neck pain, no sore throat - Cardiovascular Cardiovascular ROS IM: no chest pain, no diaphoresis, no dyspnea, no lightheadedness, no palpitations, no syncope - Respiratory Respiratory: no cough, no dyspnea, no wheezing, no excessive phlegm production - Gastrointestinal Gastrointestinal: nausea, no abdominal pain, no diarrhea, no hematemesis, no hematochezia, no melena, no vomiting - Musculoskeletal Musculoskeletal ROS IM: no numbness, no tingling - Integumentary Integumentary IM: no rash, no unusual bruising - Neurological Neurological ROS: no confusion, no convulsions, no focal weakness, no numbness, no tingling, no tremor(s) - Hematologic/Lymphatic Hematologic/Lymphatic: no easy bruising - Constitutional Vitals: Temp Pulse Resp BP Pulse Ox 97.6 F 71 14 140/90 100 02/11/17 12:13 02/11/17 17:00 02/11/17 17:00 02/11/17 17:00 02/11/17 17:00 General appearance: Present: A&O X 3 - Head Head exam: Present: atraumatic, normocephalic - Eye Eye exam: Present: PERRL, conjuntiva pink, sclera anicteric Pupils: Present: PERRL - Neck Neck exam general surgery: Present: supple, trachea midline. Absent: lymphadenopathy - Respiratory Respiratory exam: Present: CTAB. Absent: accessory muscle use, rales, rhonchi, wheezes - Cardiovascular Cardiovascular exam: Present: RRR, +S1, +S2. Absent: diastolic murmur, gallop, rubs, systolic murmur - GI/Abdominal GI/Abdominal exam: Present: normal bowel sounds, soft, no peritoneal signs. Absent: distended, tenderness - Extremities Exam Extremities exam: Present: warm, radial pulses palpable and symmetrical. Absent : calf tenderness, cyanotic, pedal edema - Neurological Exam Neurological exam: Present: CN II-XII intact, oriented X3, no focal deficits. Absent: pronater drift, facial droop, speech deficit - Skin Skin exam: Present: dry, intact Internal Med - H&P Results - Labs CBC & Chem 7: 02/11/17 13:14 02/11/17 13:14 <Felix Coffey P - Last Filed: 02/11/17 18:40> Date of Encounter: 02/11/17 Internal Medicine - H&P: HPI History of present illness: Mr. Guan is a 26 year old male All Systems PM: A 10-system review of systems was performed and is negative for pertinent findings except as documented above in the HPI. - Constitutional Vitals: Temp Pulse Resp BP Pulse Ox 97.6 F 71 14 140/90 100 02/11/17 12:13 02/11/17 17:00 02/11/17 17:00 02/11/17 17:00 02/11/17 17:00 Internal Med - H&P Results - Labs CBC & Chem 7: 02/11/17 13:14 02/11/17 13:14 - Attending Attestation I examined this patient and my medical decision-making was reviewed with the Resident Physician. I agree with the documented findings, disposition and treatment plan as described except to the extent set forth below. Is known to have her seizures. He has a neurologist at [facility]. Patient was fired from a renal neurology previously. We will restart all his antiseizure medications. Phenobarbital for acute onset seizure. Consult neurology in the a.m.
[2017-02-11] MEDS: levETIRAcetam 250 MG TABLET PO SCH (21:50)
[2017-02-11] MEDS ORDERED: *HR* LORazepam 2 MG/ML VIAL ONE (22:13)
[2017-02-11] MEDS ORDERED: Phenytoin 1,000 MG in SYRINGE 1 EACH IVPB ONE (22:19)
[2017-02-11] MEDS ORDERED: *HR* LORazepam 2 MG/ML VIAL IVP PRN (22:22)
[2017-02-11 22:55] LABS: BUN/Creatinine Ratio 10 (6-26); Blood Urea Nitrogen 10 mg/dL (8-26); Calcium 8.8 mg/dL (8.6-10.8); Chloride 109 mEq/L (98-109); Glucose 147 mg/dL (70-99); Osmolality,Calculated 298 (280-300); Potassium 3.6 mEq/L (3.5-4.5); Sodium 143 mEq/L (136-145); eGFR For African Americans > 60 (> 60); eGFR For Non-African Americans > 60 (> 60)
[2017-02-11 22:57] LABS: Carbon Dioxide 6 mEq/L (19-29)
[2017-02-11] MEDS: clonazePAM 1 MG TABLET PO SCH (23:41)
[2017-02-12 00:39] LABS: Prolactin 40.74 ng/mL (3.46-19.40)
[2017-02-12 04:59] LABS: BUN/Creatinine Ratio 9 (6-26); Blood Urea Nitrogen 7 mg/dL (8-26); Calcium 8.2 mg/dL (8.6-10.8); Carbon Dioxide 19 mEq/L (19-29); Chloride 109 mEq/L (98-109); Glucose 121 mg/dL (70-99); Magnesium 2.2 mg/dL (1.6-2.6); Osmolality,Calculated 285 (280-300); Potassium 3.1 mEq/L (3.5-4.5); Sodium 138 mEq/L (136-145); eGFR For African Americans > 60 (> 60); eGFR For Non-African Americans > 60 (> 60)
[2017-02-12 05:05] LABS: Hematocrit 41.7 % (37.5-50.1); Hemoglobin 14.1 g/dL (12.9-16.9); Immature Granulocytes % 0.8 % (0-4); Lymphocytes % 3.8 %; Mean Corpuscular HGB Conc 33.8 g/dL (31.6-35.5); Mean Corpuscular Hemoglobin 31.6 pg (28.0-33.3); Mean Corpuscular Volume 93.5 fL (83.0-100.0); Mean Platelet Volume 10.8 fL (9.4-12.4); Monocytes % 6.8 %; Platelet Count 149 K/mcL (140-400); Red Blood Count 4.46 M/mcL (4.19-5.50); Segmented Neutrophils % 88.5 %
[2017-02-12 05:06] LABS: Basophils % 0.1 %; Lymphocytes # 0.9 K/mcL (0.6-4.6); Monocytes # 1.7 K/mcL (0.0-1.3); Neutrophils # 21.6 K/mcL (1.6-8.9)
[2017-02-12] MEDS: *HR* Promethazine 25 MG/ML VIAL IVP PRN (05:58)
[2017-02-12] MEDS: levETIRAcetam 250 MG TABLET PO SCH (05:58)
[2017-02-12] MEDS: 0.9 % Sodium Chloride 1,000 ML IVC SCH ×2 (05:58→08:35)
[2017-02-12 06:09] LABS: Platelet Estimate Normal (Normal)
[2017-02-12] MEDS: clonazePAM 1 MG TABLET PO SCH (08:33)
[2017-02-12 15:40] VITALS: BP 118/64
--- NOTE | 2017-02-12 17:45 | Discharge Summary ---
Date of Encounter: 02/12/17 Time of Encounter: 10:00 - Discharge Diagnosis (1) Nausea & vomiting Priority: Secondary Status: Acute Comments: Patient presents with nausea and vomiting, unclear etiology, however could be related to chronic marijuana use. Patient was treated with Phenergan and IV fluids and did not have any or nausea and vomiting during the day. He was able to tolerate her breakfast tray without difficulty. Patient appears to have refused to eat the rest of the day despite being asked to eat. Denies nausea and vomiting. Qualifiers: Vomiting type: unspecified Vomiting Intractability: non-intractable Qualified Code(s): R11.2 - Nausea with vomiting, unspecified (2) Elevated WBC count Priority: Secondary Status: Chronic Comments: Patient with chronic leukocytosis. Most likely reactive. Patient is afebrile, normotensive. Patient will need to have a follow-up CBC in 4-6 weeks. There is no sign of infectious process at this time. Qualifiers: Leukocytosis type: unspecified Qualified Code(s): D72.829 - Elevated white blood cell count, unspecified (3) History of epilepsy Priority: Secondary Status: Chronic Comments: Per patient history. Patient did have a seizure during the night and a rapid response was called. By the time I saw him at 10 AM, he was no longer postictal was able to answer questions even though he was drowsy. Will continue with home medications. Patient states he is compliant with medication regimen. He has had no further seizure activity during the day. (4) Tobacco use Priority: Secondary Status: Chronic Comments: Patient admits to smoking at least 1 pack per day. Denies that he is ready to stop smoking. (5) Seizure Priority: Secondary Status: Acute (6) Cannabis abuse Priority: Secondary Status: Chronic Comments: Patient has a past and recent history of cannabis best abuse. Last use was 10 AM day of admission. Tox screen was positive for THC. Suspect this may be contributing to his nausea and vomiting, cannabinoid hyperemesis syndrome. - Discharge Medications Home Medications: Lacosamide [Vimpat] 100 mg PO BID 12/17/16 [History] LevETIRAcetam [Keppra] 1,500 mg PO BID 12/17/16 [History] Omeprazole [PriLOSEC] 20 mg PO DAILY 12/17/16 [History] Promethazine [Phenergan] 25 mg PO Q6H PRN 12/17/16 [History] Citalopram Hydrobromide [Citalopram HBr] 10 mg PO DAILY 02/11/17 [History] clonazePAM [Klonopin] 1 mg PO TID 02/11/17 [History] Allergies/Adverse Reactions: 3 Allergy/AdvReac Type Severity Reaction Status Date / Time alprazolam [From Xanax] Allergy Seizure Verified 02/11/17 12:16 decongestant AdvReac Vomiting Uncoded 02/11/17 12:16 Date of admission: 02/11/17 15:14 Primary care physician: Joseph Carpenter, Discharging clinician: Hanna May Anticipated date of discharge: 02/12/17 - Patient Status Disposition: Home, Self-Care Condition: Good Functional capacity at discharge: independent ambulation Overall status at discharge: patient is back to baseline - Discharge Instructions Follow Up With: Joseph Carpenter, [Primary Care Provider] - Additional Instructions: Stop smoking marijuana. Take your home medications as directed. Return to the emergency department as needed. Return to your normal activities as tolerated. - Diet and Activity Activity: increase activity as tolerated Diet: advance to your usual diet Interval History: Please see assessment and plan for hospital course. Hospital course: Mr. Guan is a 26 year old male - Time Spent with Patient Total time spent providing and/or coordinating discharge services: Less than 30 minutes - Constitutional Vitals: Temp Pulse Resp BP Pulse Ox 98.5 F 94 18 118/64 97 02/12/17 15:38 02/12/17 15:38 02/12/17 15:38 02/12/17 15:38 02/12/17 15:38 General appearance: Present: A&O X 3, pleasant, no acute distress, answers questions appropriately - Head Head exam: Present: atraumatic, normal inspection, normocephalic - Eye Eye exam: Present: PERRL, conjuntiva pink, sclera anicteric Pupils: Present: PERRL - Neck Neck exam general surgery: Present: supple, trachea midline. Absent: lymphadenopathy - Respiratory Respiratory exam: Present: CTAB. Absent: accessory muscle use, rales, rhonchi, wheezes - Cardiovascular Cardiovascular exam: Present: RRR, +S1, +S2. Absent: diastolic murmur, gallop, rubs, systolic murmur - GI/Abdominal GI/Abdominal exam: Present: normal bowel sounds, soft, no peritoneal signs. Absent: distended, tenderness - Extremities Exam Extremities exam: Present: warm, radial pulses palpable and symmetrical. Absent : calf tenderness, cyanotic, pedal edema - Neurological Exam Neurological exam: Present: CN II-XII intact, oriented X3, no focal deficits. Absent: pronater drift, facial droop, speech deficit - Skin Skin exam: Present: dry, intact
[2017-02-12 23:45] LABS: Valproate Free <7 ug/mL (7-23)
[2017-02-13 07:22] LABS: Keppra (Levetiracetam) 22 ug/mL (12-46); Valproate Total <7 ug/mL (50-125)
== END 2017-02-12 18:18 | disposition home or self-care (01) ==
LOC: 3BNU 12:03 → EMEROO 12:03 → 3BNU 18:27
PROVIDERS: ADMIT Internal Medicine; ATTEND Registered Nurse

== ENCOUNTER 2017-03-23 09:47 | Inpatient (IN) ==
[2017-03-23] MEDS ORDERED: Ondansetron 4 MG/2 ML VIAL IVP ONE ×2 (10:03→11:33)
[2017-03-23] MEDS ORDERED: 0.9 % Sodium Chloride 1,000 ML IVC ONE ×4 (10:03→23:49)
--- NOTE | 2017-03-23 10:07 | Emergency Department Note ---
Disposition Clinical Impression: Nausea and vomiting Qualifiers: Vomiting type: unspecified Vomiting Intractability: non-intractable Qualified Code(s): R11.2 - Nausea with vomiting, unspecified Disposition: Still a Patient Referrals: Joseph Carpenter DO [Primary Care Provider] - Forms: ED Satisfaction Letter Time of Disposition: 11:01 Nausea/Vomiting/Diarrhea HPI - General Chief complaint: ED Nausea/Vomiting/Diarrhea Stated complaint: seizure, vomiting Time Seen by Provider: 03/23/17 09:58 Source: patient, family Limitations: no limitations, physical limitation Nursing Notes Reviewed: Yes Vital Signs Reviewed: Yes - History of Present Illness HPI Narrative: Patient states he woke up this morning feeling diaphoretic. He developed nausea with 2 episodes of vomiting. He denies recent alcohol ingestion. No abdominal pain. No other acute GI/ symptoms. Additional history obtained from the father who conveys concern that the patient cannot keep his prescribed medications down this making him feel like he "might have a seizure." Pt Subjective Complaint: nausea, vomiting Onset (ago): hour(s) Associated Abdominal Pain: No - Related Data Home Medications Medication Instructions Recorded Confirmed Lacosamide [Vimpat] 100 mg PO BID 12/17/16 02/11/17 LevETIRAcetam [Keppra] 1,500 mg PO BID 12/17/16 02/11/17 Omeprazole [PriLOSEC] 20 mg PO DAILY 12/17/16 02/11/17 Promethazine [Phenergan] 25 mg PO Q6H PRN 12/17/16 02/11/17 Citalopram Hydrobromide 10 mg PO DAILY 02/11/17 02/11/17 [Citalopram HBr] clonazePAM [Klonopin] 1 mg PO TID 02/11/17 02/11/17 Allergies Allergy/AdvReac Type Severity Reaction Status Date / Time alprazolam [From Xanax] Allergy Seizure Verified 03/23/17 10:02 decongestant AdvReac Vomiting Uncoded 03/23/17 10:02 All systems ED: reviewed and negative except as stated. Constitutional: Reports: weakness, other (Diaphoresis) Eyes: Reports: as per HPI ENT ED: Reports: as per HPI Cardiovascular: Reports: as per HPI Respiratory: Reports: as per HPI Gastrointestinal: Reports: nausea, vomiting Genitourinary: Reports: as per HPI Musculoskeletal: Reports: as per HPI Integumentary: Reports: as per HPI Neurological: Reports: weakness Psychiatric: Reports: as per HPI Endocrine: Reports: as per HPI Hematological/Lymphatic: Reports: as per HPI Allergic/Immunologic: Reports: as per HPI Past Medical History - Past Medical History Source: patient Medical history: Reports: GERD, seizures Surgical history: Reports: no surgical history Psychiatric history: Reports: anxiety, panic disorder - Social History Smoking Status: Current every day smoker Smokeless Tobacco Status: No Alcohol use: Reports: none Drug use: Reports: marijuana, prescription drug abuse Physical Exam pale, diaphoretic and slow to answer questions - General Limitations: no limitations General appearance: alert - Head Head exam: atraumatic - Eye Eye exam: Present: normal appearance - ENT ENT exam: normal exam, mucous membranes moist - Neck Neck exam: Present: normal inspection - Chest Chest inspection: Present: normal inspection, symmetric chest wall rise - Respiratory Respiratory exam: Present: normal lung sounds bilaterally - Cardiovascular Cardiovascular exam: Present: regular rate, normal rhythm, normal heart sounds - Abdominal Exam Abdominal exam: Present: soft, Non-Tender Abdominal tenderness: Absent: RLQ - Rectal Exam Rectal exam: Present: deferred - Extremities Exam Extremities exam: Present: normal inspection - Neurological Exam Neurological exam: Present: alert, CN II-XII intact, other (knows his name and can recognize the upcoming holiday. Is unable to tell me the current date) - Psychiatric Psychiatric exam: Present: normal mood, flat affect - Skin Skin exam: Present: warm, diaphoresis, pallor Course Course Narrative: Patient presents with nausea and vomiting. He is pale and diaphoretic. He denies drug or alcohol ingestion other than recent marijuana use. I will offer IV hydration and antiemetics. He will be periodically reassessed - Reevaluation(s) Reevaluation #1: Care to be endorsed to Dr. Sarabia at 11 AM pending labs and reevaluation. Vital Signs Temperature 97.7 F 03/23/17 09:51 Pulse Rate 85 03/23/17 09:51 Respiratory Rate 18 03/23/17 09:51 Blood Pressure 159/98 03/23/17 09:51 O2 Sat by Pulse Oximetry 99 03/23/17 09:51 Temperature 97.7 F 03/23/17 09:51 Pulse Rate 71 03/23/17 10:30 Respiratory Rate 20 03/23/17 10:30 Blood Pressure 150/99 03/23/17 10:30 O2 Sat by Pulse Oximetry 100 03/23/17 10:30 Oxygen Delivery Oxygen Delivery Room Air Nausea/Vomiting/Diarrhea - Lab Data Result diagrams: 03/23/17 10:15 03/23/17 10:15 Lab Results 03/23/17 03/23/17 03/23/17 Range/Units 10:04 10:15 10:15 WBC 19.3 H (4.3-11.1) K/mcL RBC 4.75 (4.19-5.50) M/mcL Hgb 14.9 (12.9-16.9) g/dL Hct 44.1 (37.5-50.1) % MCV 92.8 (83.0-100.0) fL MCH 31.4 (28.0-33.3) pg MCHC 33.8 (31.6-35.5) g/dL RDW 12.6 (11.5-14.5) % Plt Count 170 (140-400) K/mcL MPV 10.5 (9.4-12.4) fL Immature Gran % 0.6 (0-4) % Seg Neutrophils % 78.2 % Lymphocytes % 13.7 % Monocytes % 6.7 % Eosinophils % 0.4 % Basophils % 0.4 % Neutrophils # 15.1 H (1.6-8.9) K/mcL Lymphocytes # 2.7 (0.6-4.6) K/mcL Monocytes # 1.3 (0.0-1.3) K/mcL Eosinophils # 0.1 (0.0-0.6) K/mcL Basophils # 0.1 (0.0-0.2) K/mcL Sodium 139 (136-145) mEq/L Potassium 4.3 (3.5-4.5) mEq/L Chloride 105 (98-109) mEq/L Carbon Dioxide 24 (19-29) mEq/L BUN 11 (8-26) mg/dL Creatinine 0.96 (0.72-1.25) mg/dL Est GFR ( Amer) > 60 (> 60) Est GFR (Non-Af Amer) > 60 (> 60) BUN/Creatinine Ratio 11 (6-26) Glucose 143 H (70-99) mg/dL POC Glucose 128 H (58-89) Calculated Osmolality 290 (280-300) Calcium 9.6 (8.6-10.8) mg/dL Magnesium 2.1 (1.6-2.6) mg/dL Total Bilirubin 0.3 (0.2-1.2) mg/dL AST 19 (5-34) Units/L ALT 16 (0-55) Units/L Alkaline Phosphatase 63 (38-126) Units/L Ammonia (18-72) mcmol/L Serum Total Protein 7.6 (6.0-8.3) g/dL Albumin 4.4 (3.5-5.0) g/dL Globulin 3.2 (2.4-3.5) g/dL Albumin/Globulin Ratio 1.4 (1.1-2.2) Lipase 33 (8-78) Units/L Ethyl Alcohol < 10 (0-10) mg/dL 12/17/17 Range/Units 10:15 WBC (4.3-11.1) K/mcL RBC (4.19-5.50) M/mcL Hgb (12.9-16.9) g/dL Hct (37.5-50.1) % MCV (83.0-100.0) fL MCH (28.0-33.3) pg MCHC (31.6-35.5) g/dL RDW (11.5-14.5) % Plt Count (140-400) K/mcL MPV (9.4-12.4) fL Immature Gran % (0-4) % Seg Neutrophils % % Lymphocytes % % Monocytes % % Eosinophils % % Basophils % % Neutrophils # (1.6-8.9) K/mcL Lymphocytes # (0.6-4.6) K/mcL Monocytes # (0.0-1.3) K/mcL Eosinophils # (0.0-0.6) K/mcL Basophils # (0.0-0.2) K/mcL Sodium (136-145) mEq/L Potassium (3.5-4.5) mEq/L Chloride (98-109) mEq/L Carbon Dioxide (19-29) mEq/L BUN (8-26) mg/dL Creatinine (0.72-1.25) mg/dL Est GFR ( Amer) (> 60) Est GFR (Non-Af Amer) (> 60) BUN/Creatinine Ratio (6-26) Glucose (70-99) mg/dL POC Glucose (58-89) Calculated Osmolality (280-300) Calcium (8.6-10.8) mg/dL Magnesium (1.6-2.6) mg/dL Total Bilirubin (0.2-1.2) mg/dL AST (5-34) Units/L ALT (0-55) Units/L Alkaline Phosphatase (38-126) Units/L Ammonia 25 (18-72) mcmol/L Serum Total Protein (6.0-8.3) g/dL Albumin (3.5-5.0) g/dL Globulin (2.4-3.5) g/dL Albumin/Globulin Ratio (1.1-2.2) Lipase (8-78) Units/L Ethyl Alcohol (0-10) mg/dL - EKG Data EKG attestation: Yes I reviewed and interpreted this EKG. EKG results narrative: Normal sinus rhythm rate 62 OR 144 QRS 93 QT/QTC 379/383. No acute ST segment elevation.
[2017-03-23 10:49] LABS: Basophils # 0.1 K/mcL (0.0-0.2); Basophils % 0.4 %; Eosinophils # 0.1 K/mcL (0.0-0.6); Eosinophils % 0.4 %; Hematocrit 44.1 % (37.5-50.1); Hemoglobin 14.9 g/dL (12.9-16.9); Immature Granulocytes % 0.6 % (0-4); Lymphocytes # 2.7 K/mcL (0.6-4.6); Lymphocytes % 13.7 %; Mean Corpuscular HGB Conc 33.8 g/dL (31.6-35.5); Mean Corpuscular Hemoglobin 31.4 pg (28.0-33.3); Mean Corpuscular Volume 92.8 fL (83.0-100.0); Mean Platelet Volume 10.5 fL (9.4-12.4); Monocytes # 1.3 K/mcL (0.0-1.3); Monocytes % 6.7 %; Neutrophils # 15.1 K/mcL (1.6-8.9); Platelet Count 170 K/mcL (140-400); Red Blood Count 4.75 M/mcL (4.19-5.50); Red Cell Distribution Width 12.6 % (11.5-14.5); Segmented Neutrophils % 78.2 %
[2017-03-23 10:56] LABS: Alanine Aminotransferase 16 Units/L (0-55); Albumin 4.4 g/dL (3.5-5.0); Albumin/Globulin Ratio 1.4 (1.1-2.2); Alkaline Phosphatase 63 Units/L (38-126); Aspartate Amino Transferase 19 Units/L (5-34); BUN/Creatinine Ratio 11 (6-26); Bilirubin,Total 0.3 mg/dL (0.2-1.2); Blood Urea Nitrogen 11 mg/dL (8-26); Calcium 9.6 mg/dL (8.6-10.8); Carbon Dioxide 24 mEq/L (19-29); Chloride 105 mEq/L (98-109); Ethanol < 10 mg/dL (0-10); Globulin 3.2 g/dL (2.4-3.5); Glucose 143 mg/dL (70-99); Lipase 33 Units/L (8-78); Magnesium 2.1 mg/dL (1.6-2.6); Osmolality,Calculated 290 (280-300); Potassium 4.3 mEq/L (3.5-4.5); Sodium 139 mEq/L (136-145); Total Protein 7.6 g/dL (6.0-8.3); eGFR For African Americans > 60 (> 60); eGFR For Non-African Americans > 60 (> 60)
--- NOTE | 2017-03-23 11:31 | Emergency Department Note ---
Disposition Clinical Impression: Nausea and vomiting Qualifiers: Vomiting type: unspecified Vomiting Intractability: non-intractable Qualified Code(s): R11.2 - Nausea with vomiting, unspecified Disposition: Admitted As Inpatient Condition: Good Referrals: Joseph Carpenter DO [Primary Care Provider] - Forms: ED Satisfaction Letter Time of Disposition: 14:24 Nausea/Vomiting/Diarrhea HPI - General Chief complaint: ED Nausea/Vomiting/Diarrhea Stated complaint: seizure, vomiting Time Seen by Provider: 03/23/17 09:58 Source: patient, family Limitations: no limitations - History of Present Illness Pt Subjective Complaint: nausea, vomiting Associated Abdominal Pain: No Radiation: diffuse Severity scale (1-10): 4 Consistency: constant Improves with: nothing Worsens with: nonthing Associated symptoms: Reports: myalgias, fever/chills, loss of appetite, malaise , nausea/vomiting. Denies: chest pain, cough, diaphoresis, headaches - Related Data Home Medications Medication Instructions Recorded Confirmed Lacosamide [Vimpat] 100 mg PO BID 12/17/16 03/23/17 LevETIRAcetam [Keppra] 1,500 mg PO BID 12/17/16 03/23/17 Omeprazole [PriLOSEC] 20 mg PO DAILY 12/17/16 03/23/17 Promethazine [Phenergan] 25 mg PO Q6H PRN 12/17/16 03/23/17 Citalopram Hydrobromide 10 mg PO DAILY 02/11/17 03/23/17 [Citalopram HBr] clonazePAM [Klonopin] 1 mg PO TID 02/11/17 03/23/17 Allergies Allergy/AdvReac Type Severity Reaction Status Date / Time alprazolam [From Xanax] Allergy Seizure Verified 03/23/17 13:59 decongestant AdvReac Vomiting Uncoded 03/23/17 10:02 All systems ED: reviewed and negative except as stated. Review of Systems: As Per HPI Constitutional: Reports: weakness, other (Diaphoresis) Eyes: Reports: as per HPI ENT ED: Reports: as per HPI Cardiovascular: Reports: as per HPI Respiratory: Reports: as per HPI Gastrointestinal: Reports: nausea, vomiting Genitourinary: Reports: as per HPI Musculoskeletal: Reports: as per HPI Integumentary: Reports: as per HPI Neurological: Reports: weakness Psychiatric: Reports: as per HPI Endocrine: Reports: as per HPI Hematological/Lymphatic: Reports: as per HPI Allergic/Immunologic: Reports: as per HPI Past Medical History - Past Medical History Attestation: Yes The following information was validated with the patient. Source: patient Medical history: Reports: GERD, seizures Surgical history: Reports: no surgical history Psychiatric history: Reports: anxiety, panic disorder - Social History Smoking Status: Current every day smoker Smokeless Tobacco Status: No Alcohol use: Reports: none Drug use: Reports: marijuana, prescription drug abuse Physical Exam - General Limitations: no limitations General appearance: alert - Neck Neck exam: Present: normal inspection, full ROM, trachea midline. Absent: tenderness, meningismus, lymphadenopathy - Chest Chest inspection: Present: normal inspection, symmetric chest wall rise. Absent : tenderness - Respiratory Respiratory exam: Present: normal lung sounds bilaterally. Absent: respiratory distress, wheezes - Cardiovascular Cardiovascular exam: Present: regular rate, normal rhythm, normal heart sounds - Abdominal Exam Abdominal exam: Present: soft, Non-Tender, normal bowel sounds. Absent: tenderness, distention, guarding, rebound, rigidity, trauma, Mcwilliams's sign, Rovsing's sign, tenderness at McBurney's Point - Extremities Exam Extremities exam: Present: normal inspection, full ROM, normal capillary refill. Absent: tenderness - Back Exam Back exam: Present: normal inspection, full ROM. Absent: tenderness - Neurological Exam Neurological exam: Present: alert, oriented X3, CN II-XII intact, normal gait - Skin Skin exam: Present: warm, dry, intact, normal color Course Course Narrative: Patient seen and examined the time of my arrival. Patient signed out the daytime position. Patient presented from home with less than 3 hours with acute onset of nausea vomiting and abdominal discomfort. Patient does have a history of seizure disorder and thought that he was going to have a seizure. He has been unable to take his morning dose of Keppra. Patient was concerned this might cause him to have a breakthrough seizure. Currently denying any recent drug use, alcohol abuse, illnesses. Currently denying fevers chills chest pain shortness of breath headache vision changes, or injury. His main complaint of presentation here for uncontrolled nausea vomiting and generalized malaise. Family members with him. Patient is alert and oriented answering questions. He does appear to be dehydrated because membranes are dry oropharynx is patent and has no meningeal like symptoms. Lungs are clear heart is regular abdomen is soft nontender nondistended with no guarding or rigidity. No signs of rash lesion or petechial-like presentation to the skin. He has no jaundice on initial evaluation. Vital signs otherwise stable. 2 L of fluid were given at this time screening evaluation for liver function testing including lipase influenza CPK and Keppra level will be ordered. Will not be resulted while patient is in emergency room here today. Symptomatically controlled to be completed. First dose of loading dose of IV Keppra to be given here and nausea to be controlled. No other concerns or issues initially from physical exam her presentation. Patient does appear to be generally ill with no signs of acute head trauma or injury. Patient is alert and speaking in full sentences. He did not fall he did not actively have a seizure here today. His only complaint is the presentation of nausea and vomiting. Disposition pending workup and treatment course - Reevaluation(s) Reevaluation #1: Patient is still having intractable nausea and vomiting. Labs do show elevated white blood cell count. He does have marijuana in his system and it could be attending to his uncontrolled nausea vomiting at this point. Education has been given and patient does appear to be more alert at this time with no acute signs of hemodynamic instability. Patient is continuing to belch and had intermittent episodes and uncontrollable emesis here in the emergency room. 3 separate doses of anti-medic and been given. Because of the presentation of symptoms and inability to keep down his fluids or food patient will be admitted for intractable nausea and vomiting. Patient does require antibiotic epileptic medication, Keppra, and has not been able to take it. Hospitals informed of this at this time. Patient is otherwise stable. Abdomen evaluation completed at the bedside again after admission was discussed in patient's abdomen is still benign is soft nontender nondistended with no guarding no rigidity. Patient's only complaint is the emesis. Little clinical concern at this time for bowel obstruction. Patient does not have any other acute findings concerning for intra-abdominal pathology at this point. We will continue to monitor here in the emergency room his admission process is completed Time: 14:23 Vital Signs Temperature 97.7 F 03/23/17 09:51 Pulse Rate 85 03/23/17 09:51 Respiratory Rate 18 03/23/17 09:51 Blood Pressure 159/98 03/23/17 09:51 O2 Sat by Pulse Oximetry 99 03/23/17 09:51 Temperature 97.7 F 03/23/17 09:51 Pulse Rate 82 03/23/17 14:00 Respiratory Rate 20 03/23/17 14:00 Blood Pressure 133/78 03/23/17 14:00 O2 Sat by Pulse Oximetry 99 03/23/17 14:00 Oxygen Delivery Oxygen Delivery Room Air Nausea/Vomiting/Diarrhea - MDM Narrative Medical decision making narrative: vomiting, generalized malaise, intractable nausea vomiting - Medical Records Medical records reviewed: Yes I reviewed the patient's medical records. - Lab Data Lab results reviewed: Yes I reviewed the patient's lab results. Result diagrams: 03/23/17 10:15 03/23/17 10:15 Lab Results 03/23/17 03/23/17 03/23/17 Range/Units 10:04 10:15 10:15 WBC 19.3 H (4.3-11.1) K/mcL RBC 4.75 (4.19-5.50) M/mcL Hgb 14.9 (12.9-16.9) g/dL Hct 44.1 (37.5-50.1) % MCV 92.8 (83.0-100.0) fL MCH 31.4 (28.0-33.3) pg MCHC 33.8 (31.6-35.5) g/dL RDW 12.6 (11.5-14.5) % Plt Count 170 (140-400) K/mcL MPV 10.5 (9.4-12.4) fL Immature Gran % 0.6 (0-4) % Seg Neutrophils % 78.2 % Lymphocytes % 13.7 % Monocytes % 6.7 % Eosinophils % 0.4 % Basophils % 0.4 % Neutrophils # 15.1 H (1.6-8.9) K/mcL Lymphocytes # 2.7 (0.6-4.6) K/mcL Monocytes # 1.3 (0.0-1.3) K/mcL Eosinophils # 0.1 (0.0-0.6) K/mcL Basophils # 0.1 (0.0-0.2) K/mcL Sodium 139 (136-145) mEq/L Potassium 4.3 (3.5-4.5) mEq/L Chloride 105 (98-109) mEq/L Carbon Dioxide 24 (19-29) mEq/L BUN 11 (8-26) mg/dL Creatinine 0.96 (0.72-1.25) mg/dL Est GFR ( Amer) > 60 (> 60) Est GFR (Non-Af Amer) > 60 (> 60) BUN/Creatinine Ratio 11 (6-26) Glucose 143 H (70-99) mg/dL POC Glucose 128 H (58-89) Calculated Osmolality 290 (280-300) Calcium 9.6 (8.6-10.8) mg/dL Magnesium 2.1 (1.6-2.6) mg/dL Total Bilirubin 0.3 (0.2-1.2) mg/dL AST 19 (5-34) Units/L ALT 16 (0-55) Units/L Alkaline Phosphatase 63 (38-126) Units/L Ammonia (18-72) mcmol/L Creatine Kinase (30-200) Units/L Serum Total Protein 7.6 (6.0-8.3) g/dL Albumin 4.4 (3.5-5.0) g/dL Globulin 3.2 (2.4-3.5) g/dL Albumin/Globulin Ratio 1.4 (1.1-2.2) Lipase 33 (8-78) Units/L Urine Color (Yellow) Urine Clarity (Clear) Urine pH (5.0-8.0) pH Units Ur Specific [place] (1.010-1.025) Urine Protein (Neg-Trace) mg/dL Urine Glucose (UA) (Normal) mg/dL Urine Ketones (Negative) mg/dL Urine Blood (Negative) Urine Nitrite (Negative) Urine Bilirubin (Negative) Urine Urobilinogen (Normal) mg/dL Ur Leukocyte Esterase (Negative) Ur Culture Indicated? (NO) Urine Opiates Screen (Mkzjve=038) ng/mL Ur Barbiturates Screen (Wyscvr=082) ng/mL Ur Phencyclidine Scrn (Cutoff=25) ng/mL Ur Amphetamines Screen (Mimbjr=1021) ng/mL U Benzodiazepines Scrn (Sbiyjt=295) ng/mL Urine Cocaine Screen (Cutoff= 300) ng/mL U Marijuana (THC) Screen (Cutoff = 50) ng/mL Ethyl Alcohol < 10 (0-10) mg/dL 03/23/17 03/23/17 03/23/17 Range/Units 10:15 11:50 13:00 WBC (4.3-11.1) K/mcL RBC (4.19-5.50) M/mcL Hgb (12.9-16.9) g/dL Hct (37.5-50.1) % MCV (83.0-100.0) fL MCH (28.0-33.3) pg MCHC (31.6-35.5) g/dL RDW (11.5-14.5) % Plt Count (140-400) K/mcL MPV (9.4-12.4) fL Immature Gran % (0-4) % Seg Neutrophils % % Lymphocytes % % Monocytes % % Eosinophils % % Basophils % % Neutrophils # (1.6-8.9) K/mcL Lymphocytes # (0.6-4.6) K/mcL Monocytes # (0.0-1.3) K/mcL Eosinophils # (0.0-0.6) K/mcL Basophils # (0.0-0.2) K/mcL Sodium (136-145) mEq/L Potassium (3.5-4.5) mEq/L Chloride (98-109) mEq/L Carbon Dioxide (19-29) mEq/L BUN (8-26) mg/dL Creatinine (0.72-1.25) mg/dL Est GFR ( Amer) (> 60) Est GFR (Non-Af Amer) (> 60) BUN/Creatinine Ratio (6-26) Glucose (70-99) mg/dL POC Glucose (58-89) Calculated Osmolality (280-300) Calcium (8.6-10.8) mg/dL Magnesium (1.6-2.6) mg/dL Total Bilirubin (0.2-1.2) mg/dL AST (5-34) Units/L ALT (0-55) Units/L Alkaline Phosphatase (38-126) Units/L Ammonia 25 (18-72) mcmol/L Creatine Kinase 88 (30-200) Units/L Serum Total Protein (6.0-8.3) g/dL Albumin (3.5-5.0) g/dL Globulin (2.4-3.5) g/dL Albumin/Globulin Ratio (1.1-2.2) Lipase (8-78) Units/L Urine Color Yellow (Yellow) Urine Clarity Slightly Hazy (Clear) Urine pH 8.0 (5.0-8.0) pH Units Ur Specific [place] 1.020 (1.010-1.025) Urine Protein Negative (Neg-Trace) mg/dL Urine Glucose (UA) 100 H (Normal) mg/dL Urine Ketones Trace H (Negative) mg/dL Urine Blood Negative (Negative) Urine Nitrite Negative (Negative) Urine Bilirubin Negative (Negative) Urine Urobilinogen Normal (Normal) mg/dL Ur Leukocyte Esterase Negative (Negative) Ur Culture Indicated? NO (NO) Urine Opiates Screen (Nmxyki=614) ng/mL Ur Barbiturates Screen (Fusrco=420) ng/mL Ur Phencyclidine Scrn (Cutoff=25) ng/mL Ur Amphetamines Screen (Xsdhpg=2585) ng/mL U Benzodiazepines Scrn (Gwsciv=420) ng/mL Urine Cocaine Screen (Cutoff= 300) ng/mL U Marijuana (THC) Screen (Cutoff = 50) ng/mL Ethyl Alcohol (0-10) mg/dL 03/23/17 Range/Units 13:00 WBC (4.3-11.1) K/mcL RBC (4.19-5.50) M/mcL Hgb (12.9-16.9) g/dL Hct (37.5-50.1) % MCV (83.0-100.0) fL MCH (28.0-33.3) pg MCHC (31.6-35.5) g/dL RDW (11.5-14.5) % Plt Count (140-400) K/mcL MPV (9.4-12.4) fL Immature Gran % (0-4) % Seg Neutrophils % % Lymphocytes % % Monocytes % % Eosinophils % % Basophils % % Neutrophils # (1.6-8.9) K/mcL Lymphocytes # (0.6-4.6) K/mcL Monocytes # (0.0-1.3) K/mcL Eosinophils # (0.0-0.6) K/mcL Basophils # (0.0-0.2) K/mcL Sodium (136-145) mEq/L Potassium (3.5-4.5) mEq/L Chloride (98-109) mEq/L Carbon Dioxide (19-29) mEq/L BUN (8-26) mg/dL Creatinine (0.72-1.25) mg/dL Est GFR ( Amer) (> 60) Est GFR (Non-Af Amer) (> 60) BUN/Creatinine Ratio (6-26) Glucose (70-99) mg/dL POC Glucose (58-89) Calculated Osmolality (280-300) Calcium (8.6-10.8) mg/dL Magnesium (1.6-2.6) mg/dL Total Bilirubin (0.2-1.2) mg/dL AST (5-34) Units/L ALT (0-55) Units/L Alkaline Phosphatase (38-126) Units/L Ammonia (18-72) mcmol/L Creatine Kinase (30-200) Units/L Serum Total Protein (6.0-8.3) g/dL Albumin (3.5-5.0) g/dL Globulin (2.4-3.5) g/dL Albumin/Globulin Ratio (1.1-2.2) Lipase (8-78) Units/L Urine Color (Yellow) Urine Clarity (Clear) Urine pH (5.0-8.0) pH Units Ur Specific [place] (1.010-1.025) Urine Protein (Neg-Trace) mg/dL Urine Glucose (UA) (Normal) mg/dL Urine Ketones (Negative) mg/dL Urine Blood (Negative) Urine Nitrite (Negative) Urine Bilirubin (Negative) Urine Urobilinogen (Normal) mg/dL Ur Leukocyte Esterase (Negative) Ur Culture Indicated? (NO) Urine Opiates Screen Negative (Qmshie=689) ng/mL Ur Barbiturates Screen Negative (Vjurrs=684) ng/mL Ur Phencyclidine Scrn Negative (Cutoff=25) ng/mL Ur Amphetamines Screen Negative (Aykrjv=6775) ng/mL U Benzodiazepines Scrn Negative (Utgcdw=434) ng/mL Urine Cocaine Screen Negative (Cutoff= 300) ng/mL U Marijuana (THC) Screen Positive H (Cutoff = 50) ng/mL Ethyl Alcohol (0-10) mg/dL - Radiology Data Radiology results reviewed: Yes I reviewed the patient's radiology results. Chest x-ray is negative for acute intrathoracic pathology or signs of free air underneath the diaphragm. No distended loops of bowel noted on screening evaluation - EKG Data EKG attestation: Yes I reviewed and interpreted this EKG. EKG results narrative: EKG shows sinus rhythm with no acute signs of electrolyte abnormality, intervals are normal, ventricular rate of 62, ID interval 144, QRS duration of 93, QTC of 383. [place] is normal. No acute signs of Brugada syndrome, WPW, electrolyte or interval abnormality
[2017-03-23 13:12] LABS: Bilirubin,Urine Negative (Negative); Blood,Urine Negative (Negative); Color,Urine Yellow (Yellow); Glucose,Urine (UA) 100 mg/dL (Normal); Ketones,Urine Trace mg/dL (Negative); Leukocyte Esterase,Urine Negative (Negative); Nitrite,Urine Negative (Negative); Protein,Urine Negative (Neg-Trace); Urobilinogen,Urine Normal (Normal)
[2017-03-23 13:16] LABS: Clarity,Urine Slightly Hazy (Clear)
[2017-03-23] MEDS ORDERED: Promethazine 12.5 MG in 0.9 % Sodium Chloride 50 ML IVPB ONE (13:24)
[2017-03-23 13:40] LABS: Amphetamine Screen,Urine Negative ng/mL (Cutoff=1000); Barbiturate Screen,Urine Negative ng/mL (Cutoff=200); Benzodiazepines Screen,Urine Negative ng/mL (Cutoff=200); Cannabinoid Screen,Urine Positive ng/mL (Cutoff = 50); Cocaine Screen,Urine Negative ng/mL (Cutoff= 300); Opiate Screen,Urine Negative ng/mL (Cutoff=300); Phencyclidine Screen,Urine Negative ng/mL (Cutoff=25)
[2017-03-23] MEDS ORDERED: levETIRAcetam 1,000 MG in 0.9 % Sodium Chloride 100 ML IVPB ONE (14:51)
[2017-03-23] MEDS ORDERED: Naloxone 0.4 MG/ML INJ IVP PRN (14:53)
[2017-03-23] MEDS ORDERED: Ondansetron 4 MG/2 ML VIAL IVP PRN (14:53)
[2017-03-23] MEDS ORDERED: 0.9 % Sodium Chloride 1,000 ML IVC SCH (15:00)
--- NOTE | 2017-03-23 15:07 | Internal Med History&Physical ---
<Jah Fernandez - Last Filed: 03/23/17 15:02> Date of Encounter: 03/23/17 Time of Encounter: 15:02 Assessment and Plan (1) Intractable nausea and vomiting Current visit: Yes Status: Acute Intractable nausea and vomiting which began this morning. Reporting multiple episodes since he is awake and Additionally, his generalized weakness and fatigue uknown etiology, could be viral, does not appear to have obstructive, pancreatic , or gallbladder cause Reports regular BM's, no colic pain, abdomen non-tender on exam, no guarding, denies pain amylase normal, no lactic acidosis, non-toxic appearing- hold abdominal CT at this time. remains hemodynamically stable continue anti emetics-phenergan and zofran PPI BID IVP IVF 0.9% NS at 125ml/hr Continuous tele, and spo2 monitoring CBC, BMP in the morning Qualifiers: Vomiting type: cyclical vomiting Qualified Code(s): G43.A1 - Cyclical vomiting, intractable (2) Dehydration Current visit: Yes Status: Acute In the setting of intractable nausea and vomiting No electrolyte abnormalities noted Received 2 L fluid bolus and ED. Continue IV fluids 0.9% normal saline at 125 mL per hour Recheck electrolytes in the morning continuous tele resume oral intake as tolerated (3) Elevated WBC count Current visit: Yes Status: Chronic Leukocytosis with WBC of 19,000. Unclear etiology. Urinalysis negative. Chest x-ray unremarkable. Due to intractable nausea and vomiting and history of seizure disorder he is at risk for aspiration CXR in the morning Qualifiers: Leukocytosis type: unspecified Qualified Code(s): D72.829 - Elevated white blood cell count, unspecified (4) Weakness Current visit: Yes Status: Acute In the setting of intractable nausea vomiting and dehydration. Denies any arthralgia, myalgia, numbness or tingling of extremities No focal neuro deficits or weakness noted upon exam See plan above (5) History of epilepsy Current visit: Yes Status: Chronic History of epilepsy. Patient reports taking Keppra and Vimpat, but he has missed this morning's dose due to nausea and vomiting. Denies any recent seizure events. Restart via IVPB 1500 mg twice a day Resume Vimpat when patient able to tolerate oral intake Start seizure precautions aspiration precautions Continue to monitor signs and symptoms of seizure, continuous telemetry Will hold of on neuro consult; has not had an recent seizure like activity (6) Tobacco use Current visit: Yes Status: Chronic Continues to smoke Cessation counseling provided Denies any nicotine patch at this time (7) Cannabis abuse Current visit: Yes Status: Chronic (8) DVT prophylaxis Current visit: Yes Status: Acute Patient is ambulatory, low risk for DVT. Up as tolerated Internal Medicine - H&P: HPI Chief complaint: Intractable nausea and vomiting Admitted From: Home Plans for Post Hospital Care: Home History of present illness: Mr. Guan is a 26 year old male with PMH of GERD and seizure disorder. He presents today with a decrease in appetite, intractable nausea and vomiting which began this morning, with generalized malaise fatigue. Denies any night sweats, constipation, hematemesis, hematochezia, melena headaches, dizziness, vision changes, abdominal pain, fever, shortness of breath, chest pain, injury or any home illnesses. Denies any petechial-like presentation or rash or lesions. Again, nausea is on ongoing since this morning. Patient has a history of seizure disorder and reported to the ED today due to concerns that he could not take his by mouth Keppra. Workup in the ED included chest x-ray is unremarkable, rapid flu negative urinalysis unremarkable. Only abnormality was a elevated WBC of 19,000. Past Med Surg Social Fam HX - Past Medical History Medical history: GERD, seizures Psychiatric history: anxiety, panic disorder - Past Surgical History Surgical History: no surgical history - Social History Smoking Status: Current every day smoker Smokeless Tobacco Status: No Alcohol use: none Drug use: marijuana, prescription drug abuse - Family History Father Living Status: Still Living Hx Family Neurologic Disorders: Yes (Depression/Anxiety) Internal Medicine - H&P: Meds Lacosamide [Vimpat] 100 mg PO BID 12/17/16 [History] LevETIRAcetam [Keppra] 1,500 mg PO BID 12/17/16 [History] Omeprazole [PriLOSEC] 20 mg PO DAILY 12/17/16 [History] Promethazine [Phenergan] 25 mg PO Q6H PRN 12/17/16 [History] Citalopram Hydrobromide [Citalopram HBr] 10 mg PO DAILY 02/11/17 [History] clonazePAM [Klonopin] 1 mg PO TID 02/11/17 [History] 3 Allergy/AdvReac Type Severity Reaction Status Date / Time alprazolam [From Xanax] Allergy Seizure Verified 03/23/17 13:59 decongestant AdvReac Vomiting Uncoded 03/23/17 10:02 All Systems PM: A 10-system review of systems was performed and is negative for pertinent findings except as documented above in the HPI. - Constitutional Constitutional: anorexia, chills, fatigue, lethargy, malaise, weakness, no excessive sweating, no fever(s), no night sweats, no weight loss - EENT Eyes: no blurry vision - Cardiovascular Cardiovascular ROS IM: no chest pain, no diaphoresis, no dyspnea, no lightheadedness, no palpitations, no syncope - Respiratory Respiratory: no cough, no dyspnea, no wheezing, no excessive phlegm production - Gastrointestinal Gastrointestinal: nausea, vomiting, no abdominal pain, no constipation, no diarrhea, no hematemesis, no hematochezia, no melena - Genitourinary Genitourinary ROS male: no dysuria, no flank pain - Musculoskeletal Musculoskeletal ROS IM: no numbness, no tingling - Integumentary Integumentary IM: no rash, no unusual bruising - Neurological Neurological ROS: no dizziness, no frequent falls, no headache(s), no numbness, no tingling, no vertigo, no weakness - Constitutional Vitals: Temp Pulse Resp BP Pulse Ox 97.7 F 82 18 150/101 99 03/23/17 09:51 03/23/17 14:00 03/23/17 14:39 03/23/17 14:39 03/23/17 14:00 General appearance: Present: mild distress, A&O X 3, answers questions appropriately Exam: Dehydrated and ill appearing - Head Head exam: Present: atraumatic, normocephalic - Neck Neck exam general surgery: Present: supple, trachea midline. Absent: lymphadenopathy, nuchal rigidity - Respiratory Respiratory exam: Present: CTAB. Absent: accessory muscle use, decreased breath sounds, rales, rhonchi, wheezes - Cardiovascular Cardiovascular exam: Present: RRR, +S1, +S2. Absent: diastolic murmur, gallop, rubs, systolic murmur - GI/Abdominal GI/Abdominal exam: Present: normal bowel sounds, soft, no peritoneal signs. Absent: distended, firm, guarding, hepatomegaly, rebound, splenomegaly, tenderness - Extremities Exam Extremities exam: Present: warm, radial pulses palpable and symmetrical. Absent : calf tenderness, cyanotic, pedal edema - Neurological Exam Neurological exam: Present: alert, oriented X3. Absent: facial droop, speech deficit - Skin Skin exam: Present: dry, intact Internal Med - H&P Results - Labs CBC & Chem 7: 03/23/17 10:15 03/23/17 10:15 - EKG Data -: EKG Interpreted by Myself EKG shows normal: sinus rhythm Rate: normal - EKG Data EKG comments: EKG shows sinus rhythm with no acute signs of electrolyte abnormality, intervals are normal, ventricular rate of 62 03/23/17 15:12 - Diagnostic Studies Chest x-ray Status: image reviewed by me Additional comments: No acute pulmonary process - VTE Reasons for not Prescribing Prophylaxis: Treatment not Indicated - Low risk for VTE <Mike Maier - Last Filed: 03/23/17 18:18> Date of Encounter: 03/23/17 Internal Medicine - H&P: HPI History of present illness: Mr. Guan is a 26 year old male All Systems PM: A 10-system review of systems was performed and is negative for pertinent findings except as documented above in the HPI. - Constitutional Vitals: Temp Pulse Resp BP Pulse Ox 98.0 F 85 18 146/89 100 03/23/17 16:30 03/23/17 16:30 03/23/17 16:30 03/23/17 16:30 03/23/17 16:30 Internal Med - H&P Results - Labs CBC & Chem 7: 03/23/17 10:15 03/23/17 10:15
[2017-03-23] MEDS: *HR* Promethazine 25 MG/ML VIAL IVP PRN ×2 (15:52→23:42)
[2017-03-23] MEDS ORDERED: Pantoprazole 40 MG VIAL IVP SCH (18:00)
[2017-03-23] MEDS ORDERED: *HR* LORazepam 2 MG/ML VIAL IVP ONE (21:32)
[2017-03-23] MEDS ORDERED: Water for inj. (sterile) 10 ML IV ONE (21:32)
[2017-03-23] MEDS ORDERED: *HR* LORazepam 2 MG/ML VIAL ONE (21:32)
[2017-03-23] MEDS ORDERED: *HR* LORazepam 2 MG/ML VIAL IVP PRN (21:54)
--- NOTE | 2017-03-23 21:54 | Event Note ---
Date of Encounter: 03/23/17 Time of Encounter: 21:51 Rapid response notes: Pt started having acti ve seizure, sonurse called [facility]. When we went there, he does have generalized tonic seizure. So gave him Ativan 1mg IV x 1 dose, his seizure stopped and now resting comfortably. He does look confused. Will asses him later. His vitals are stable. Accu check [id number] Will gte CBC, BMP, MG, Lactic acid and Keppra levels Started Keppra IV.. We do not have Vimpat IV here so will try to give him PO when he wakes up Also started him on IV ativan PRN seizure precautions
[2017-03-23 22:08] LABS: Basophils % 0.1 %; Eosinophils % 0.1 %; Hematocrit 44.6 % (37.5-50.1); Hemoglobin 14.6 g/dL (12.9-16.9); Immature Granulocytes % 0.4 % (0-4); Lymphocytes # 1.1 K/mcL (0.6-4.6); Lymphocytes % 7.6 %; Mean Corpuscular HGB Conc 32.7 g/dL (31.6-35.5); Mean Corpuscular Hemoglobin 31.5 pg (28.0-33.3); Mean Corpuscular Volume 96.1 fL (83.0-100.0); Mean Platelet Volume 10.3 fL (9.4-12.4); Monocytes # 0.5 K/mcL (0.0-1.3); Monocytes % 3.5 %; Neutrophils # 13.2 K/mcL (1.6-8.9); Platelet Count 151 K/mcL (140-400); Red Blood Count 4.64 M/mcL (4.19-5.50); Red Cell Distribution Width 12.6 % (11.5-14.5); Segmented Neutrophils % 88.3 %
[2017-03-23 22:21] LABS: BUN/Creatinine Ratio 7 (6-26); Blood Urea Nitrogen 7 mg/dL (8-26); Calcium 9.3 mg/dL (8.6-10.8); Chloride 105 mEq/L (98-109); Glucose 126 mg/dL (70-99); Osmolality,Calculated 284 (280-300); Potassium 3.8 mEq/L (3.5-4.5); Sodium 137 mEq/L (136-145); eGFR For African Americans > 60 (> 60); eGFR For Non-African Americans > 60 (> 60)
[2017-03-23 22:27] LABS: Carbon Dioxide 6 mEq/L (19-29)
[2017-03-23] MEDS ORDERED: Sodium Bicarbonate 150 MEQ in D5% in Water 1,000 ML IVC SCH ×2 (23:00→23:01)
[2017-03-24] MEDS ORDERED: *HR* Promethazine 25 MG/ML VIAL IVP PRN (00:13)
[2017-03-24] MEDS ORDERED: Ondansetron 4 MG/2 ML VIAL IVP PRN (00:13)
[2017-03-24] MEDS ORDERED: Naloxone 0.4 MG/ML INJ IVP PRN (00:13)
[2017-03-24] MEDS ORDERED: *HR* LORazepam 2 MG/ML VIAL IVP PRN (00:13)
[2017-03-24 02:40] LABS: Basophils % 0.1 %; Hemoglobin 13.3 g/dL (12.9-16.9); Lymphocytes % 4.4 %
[2017-03-24 02:42] LABS: Hematocrit 37.1 % (37.5-50.1); Immature Granulocytes % 0.5 % (0-4); Immature Platelets 3.8 % (1.1-6.1); Lymphocytes # 1.1 K/mcL (0.6-4.6); Mean Corpuscular HGB Conc 35.8 g/dL (31.6-35.5); Mean Corpuscular Volume 89.4 fL (83.0-100.0); Mean Platelet Volume 10.5 fL (9.4-12.4); Monocytes # 1.7 K/mcL (0.0-1.3); Monocytes % 6.7 %; Neutrophils # 22.7 K/mcL (1.6-8.9); Platelet Count 147 K/mcL (140-400); Red Blood Count 4.15 M/mcL (4.19-5.50); Red Cell Distribution Width 12.6 % (11.5-14.5); Segmented Neutrophils % 88.3 %
[2017-03-24 02:50] LABS: BUN/Creatinine Ratio 6 (6-26); Calcium 8.3 mg/dL (8.6-10.8); Chloride 106 mEq/L (98-109); Glucose 125 mg/dL (70-99); Osmolality,Calculated 287 (280-300); Potassium 2.8 mEq/L (3.5-4.5); Sodium 139 mEq/L (136-145); eGFR For African Americans > 60 (> 60); eGFR For Non-African Americans > 60 (> 60)
[2017-03-24 03:02] LABS: Blood Urea Nitrogen 5 mg/dL (8-26); Carbon Dioxide 22 mEq/L (19-29)
[2017-03-24 04:16] LABS: Large Platelets Present (Not Present); Platelet Estimate Normal (Normal); Toxic Granulation Present (Not Present)
[2017-03-24] MEDS ORDERED: Pantoprazole 40 MG VIAL IVP SCH (06:00)
[2017-03-24] MEDS ORDERED: Piperacillin/Tazobactam 3.375 GM in D5% in Water (Mini-Bag+) 100 ML IVPB SCH (06:00)
[2017-03-24] MEDS ORDERED: Piperacillin/Tazobactam 3.375 GM/200 ML BAG IVPB SCH ×2 (06:00→14:00)
--- NOTE | 2017-03-24 08:28 | Neurology - Consult Note ---
Date of Encounter: 03/24/17 Time of Encounter: 08:25 Assessment and Plan (1) Breakthrough seizure Current Visit: Yes Status: Acute The patient has a known history of a seizure along with anxiety. It seems likely that he may have had a breakthrough seizure perhaps because he was unable to hold his medications down. At this juncture we do not have an explanation for the profound nausea and vomiting. From a neurologic perspective however he is stable. I agree with maintaining IV levetiracetam 150 mg twice a day until used able to tolerate oral medications. EEG is pending , levetiracetam level is pending. Not convinced that neuroimaging is necessary at this time. Patient apparently has a prescription for clonazepam however it was not present in the urine drug screen. Further recommendations will be made pending the EEG. Maintain seizure precautions. History of Present Illness HPI: Mr. Guan is a 26 year old male with a known history of benzodiazepine, ethanol , and marijuana abuse who was hospitalized secondary to repetitive nausea and vomiting. He also has a known history of seizure and is also treated for anxiety. He states that he missed one dose of Keppra and states that he started feeling as though he is going to have a seizure. He describes paresthesias in the fingertips and feet. He did not bite his tongue, nor did he lose urinary continence. He is currently in the intensive care unit he is not intubated he is easily arousable to voice and is coherent. He is oriented 3. He has had no further seizures since admission. He was loaded with Keppra in the ED and an EEG was ordered. The etiology for the nausea and vomiting is unknown at this time. He denies headache denies nuchal rigidity, he has been afebrile. He was previously under the care of Dr. Mcgowan but has apparently been discharged due to noncompliance and no-shows. Past Med Surg Social Fam HX - Past Medical History Medical history: GERD, seizures Psychiatric history: anxiety, panic disorder - Past Surgical History Surgical History: no surgical history - Social History Smoking Status: Current every day smoker Smokeless Tobacco Status: No Alcohol use: none Drug use: marijuana, prescription drug abuse - Family History Father Living Status: Still Living Hx Family Neurologic Disorders: Yes (Depression/Anxiety) Medications and Allergies Lacosamide [Vimpat] 100 mg PO BID 12/17/16 [History] LevETIRAcetam [Keppra] 1,500 mg PO BID 12/17/16 [History] Omeprazole [PriLOSEC] 20 mg PO DAILY 12/17/16 [History] Promethazine [Phenergan] 25 mg PO Q6H PRN 12/17/16 [History] Citalopram Hydrobromide [Citalopram HBr] 10 mg PO DAILY 02/11/17 [History] clonazePAM [Klonopin] 1 mg PO TID 02/11/17 [History] 3 Allergy/AdvReac Type Severity Reaction Status Date / Time alprazolam [From Xanax] Allergy Seizure Verified 03/23/17 13:59 decongestant AdvReac Vomiting Uncoded 03/23/17 10:02 All Systems: A 10-system review of systems was performed and is negative for pertinent findings except as documented above in the HPI. Review of Systems: A 10 point review of systems is consistent with a history of present illness and is otherwise negative. Physical Examination - Vital Signs Vital Signs: Initial Vital Signs Temp Pulse Resp BP Pulse Ox 97.7 F 85 18 159/98 99 03/23/17 09:51 03/23/17 09:51 03/23/17 09:51 03/23/17 09:51 03/23/17 09:51 - Neurologic Detailed motor examination: full strength in all major muscle groups Motor examination - right side: 5/5: deltoids, biceps, triceps, wrist flexion, wrist extension, production control clerk, hip flexors, tibialis Anterior, quadriceps, toe extension (EHL), plantarflexion Motor examination - left side: 5/5: deltoids, biceps, triceps, wrist flexion, wrist extension, hip flexors, production control clerk, quadriceps, tibialis Anterior, toe extension (EHL), plantarflexion Reflexes: Biceps: 2+, Triceps: 2+, Brachioradialis: 2+, Patella: 2+, Achilles: 2 + Mental Status Examination: awake, alert, oriented to person, oriented to place, oriented to time, follows commands appropriately, answers questions appropriately, no agnosia, no aphasia, no aproxia Cranial nerve examination: PERRL, EOMI, visual hodge intact, corneal reflexes brisk symmetrically, sensory to face intact, mastication intact, no facial asymmetry is present, no dysarthria, hearing is intact symmetrically, soft palate elevates bilaterally upon phonation, gag reflex intact, flexes SCM and trapezius muscles symmetrically with full power, tongue protrudes midline, no atrophy or facial fasiculations present Cerebellar examination: no dysmetria, performs finger to nose and heel to elliott symmetrically without ataxia, no truncal ataxia, no difficulty with rapid alternating movements Results - Laboratory Findings CBC and BMP: 03/24/17 02:19 03/24/17 02:19 Abnormal lab findings: Abnormal lab results WBC 25.7 K/mcL (4.3-11.1) H D 03/24/17 02:19 RBC 4.15 M/mcL (4.19-5.50) L 03/24/17 02:19 Hct 37.1 % (37.5-50.1) L 03/24/17 02:19 MCHC 35.8 g/dL (31.6-35.5) H 03/24/17 02:19 Neutrophils # 22.7 K/mcL (1.6-8.9) H 03/24/17 02:19 Monocytes # 1.7 K/mcL (0.0-1.3) H 03/24/17 02:19 Toxic Granulation Present (Not Present) A 03/24/17 02:19 Large Platelets Present (Not Present) A 03/24/17 02:19 Potassium 2.8 mEq/L (3.5-4.5) L D 03/24/17 02:19 BUN 5 mg/dL (8-26) L 03/24/17 02:19 Glucose 125 mg/dL (70-99) H 03/24/17 02:19 POC Glucose 91 (58-89) H 03/23/17 23:32 Calcium 8.3 mg/dL (8.6-10.8) L 03/24/17 02:19 Urine Glucose (UA) 100 mg/dL (Normal) H 03/23/17 13:00 Urine Ketones Trace mg/dL (Negative) H 03/23/17 13:00 U Marijuana (THC) Screen Positive ng/mL (Cutoff = 50) H 03/23/17 13:00 Consult Discharge Plan - Plan Referrals: Joseph Carpenter, [Primary Care Provider] -
[2017-03-24] MEDS ORDERED: 0.9 % Sodium Chloride 1,000 ML IV SCH (09:00)
--- NOTE | 2017-03-24 09:21 | Internal Med Progress Note ---
Date of Encounter: 03/24/17 Time of Encounter: 08:40 - Assessment and plan (1) Nausea & vomiting Current Visit: Yes Status: Acute Assessment and plan: Concern for hyperemesis syndrome secondary to chronic marijuana abuse currently denies n/v willing to try clear liquid diet will continue anti-emetic support as needed Qualifiers: Vomiting type: unspecified Vomiting Intractability: non-intractable Qualified Code(s): R11.2 - Nausea with vomiting, unspecified (2) Cannabis abuse Current Visit: Yes Status: Chronic Assessment and plan: extensive counseling provided against marijuana abuse pt states this helps with his anxiety and the nausea, however also reports of difficulty with memory that has been worsening overnight, which can also be secondary to chronic cannabis abuse (3) Hypokalemia Current Visit: Yes Status: Acute Assessment and plan: K supplemented continue to monitor electrolytes and replace as needed (4) Elevated lactic acid level Current Visit: No Status: Resolved (5) Leukocytosis Current Visit: No Status: Acute Assessment and plan: Likely reactive secondary to the seizure pt started empirically on zosyn with concern for aspiration pneumonitis current CXR negative will de-escalate therapy if pt continues to remain afebrile Qualifiers: Leukocytosis type: unspecified Qualified Code(s): D72.829 - Elevated white blood cell count, unspecified (6) Seizure Current Visit: No Status: Acute Assessment and plan: reported of having a seizure overnight restarting home dose of Vimpat continue IV Keppra pending EEG maintain seizure precautions Ativan IV prn breakthrough seizures Neurology on board and consultation appreciated (7) History of epilepsy Current Visit: Yes Status: Chronic (8) DVT prophylaxis Current Visit: Yes Status: Acute Assessment and plan: Heparin SQ - Subjective Interval history: Patient seen and examined at bedside. Overnight reported of having a tonic clonic seizure requiring Ativan 1mg IV. Pt currently resting in bed and reports of generalized weakness. Reports of smoking marijuana 3 times daily for 10+ years. Reports of recurrent nausea/vomiting requiring hospitalization. at this time, he denies any nausea and is tolerating PO liquids appropriately. - Constitutional Vitals: Temp Pulse Resp BP Pulse Ox 98.8 F 110 18 110/68 94 03/24/17 07:00 03/24/17 08:00 03/24/17 08:00 03/24/17 08:00 03/24/17 08:00 General appearance: Present: A&O X 3 (fatigued), no acute distress, underweight , answers questions appropriately - Head Head exam: Present: atraumatic, normocephalic - Eye Eye exam: Present: conjuntiva pink, sclera anicteric - Respiratory Respiratory exam: Present: CTAB. Absent: accessory muscle use, rales, rhonchi, wheezes - Cardiovascular Cardiovascular exam: Present: +S1, +S2, tachycardia. Absent: diastolic murmur, systolic murmur - GI/Abdominal GI/Abdominal exam: Present: normal bowel sounds, soft, no peritoneal signs. Absent: distended, tenderness - Extremities Exam Extremities exam: Present: warm, radial pulses palpable and symmetrical. Absent : calf tenderness, cyanotic, pedal edema - Neurological Exam Neurological exam: Present: alert, oriented X3 Internal Medicine: Result - Labs CBC & Chem 7: 03/24/17 02:19 03/24/17 02:19 Labs: Short CBC 03/23/17 03/24/17 Range/Units 22:00 02:19 WBC 15.0 H 25.7 H D (4.3-11.1) K/mcL Hgb 14.6 13.3 (12.9-16.9) g/dL Hct 44.6 37.1 L (37.5-50.1) % Plt Count 151 147 (140-400) K/mcL Neutrophils # 13.2 H 22.7 H (1.6-8.9) K/mcL BMP 03/23/17 03/24/17 22:00 02:19 Sodium 137 139 Potassium 3.8 2.8 L D Chloride 105 106 Carbon Dioxide 6 L* D 22 D BUN 7 L 5 L Creatinine 1.03 0.78 Glucose 126 H 125 H Calcium 9.3 8.3 L - Impressions Impressions Abdomen/Pelvis CT 03/23/17 22:49 IMPRESSION: Trace amount of pelvic free fluid, nonspecific. Otherwise, no evidence for acute intra-abdominal or intrapelvic pathology. No bowel obstruction or inflammation. No free intraperitoneal air. No evidence for urinary obstruction. Normal appendix. D/ / Bunny Blank MD / Bunny Blank MD Interpreting Provider: Bunny Blank MD Chest X-Ray 03/24/17 07:00 IMPRESSION: 1. No acute cardiopulmonary disease. Specifically, no radiographic evidence of aspiration. D/ / Julianna Mckeon MD / Julianna Mckeon MD Interpreting Provider: Julianna Mckeon MD - VTE Reasons for not Prescribing Prophylaxis: Treatment not Indicated - Low risk for VTE Consult Discharge Plan - Plan Referrals: Joseph Carpenter DO [Primary Care Provider] -
[2017-03-24 10:03] LABS: BUN/Creatinine Ratio 6 (6-26); Calcium 8.4 mg/dL (8.6-10.8); Carbon Dioxide 24 mEq/L (19-29); Chloride 112 mEq/L (98-109); Glucose 108 mg/dL (70-99); Osmolality,Calculated 292 (280-300); Sodium 142 mEq/L (136-145); eGFR For African Americans > 60 (> 60); eGFR For Non-African Americans > 60 (> 60)
[2017-03-24 10:06] LABS: Blood Urea Nitrogen 5 mg/dL (8-26); Potassium 3.9 mEq/L (3.5-4.5)
[2017-03-24 11:55] VITALS: BP 120/75
[2017-03-24 12:10] LABS: BUN/Creatinine Ratio 7 (6-26); Blood Urea Nitrogen 6 mg/dL (8-26); Calcium 8.9 mg/dL (8.6-10.8); Carbon Dioxide 24 mEq/L (19-29); Chloride 110 mEq/L (98-109); Glucose 97 mg/dL (70-99); Osmolality,Calculated 290 (280-300); Potassium 3.8 mEq/L (3.5-4.5); Sodium 141 mEq/L (136-145); eGFR For African Americans > 60 (> 60); eGFR For Non-African Americans > 60 (> 60)
--- NOTE | 2017-03-24 12:40 | EEG/EMG/Oth Biometrics Report ---
EEG Procedure Report Date of procedure: 03/24/17 EEG Procedure: Routine EEG Procedure Note: This is a report of a 21 channel bipolar and referential montage EEG recorded on a patient with a prior history of epilepsy. Posterior dominant rhythm of 8- 9 Hz moderate voltage alpha frequency is identified symmetrically in the occipital head regions. This rhythm attenuates symmetrically with eye opening. Hyperventilation is performed and does result in some desynchronization of the recording and minor buildup. There is no sleep architecture identified during this study. Photostimulation is performed and produces a symmetric driving response. The EKG rhythm strip reveals normal sinus rhythm at 78 beats per minute. Impression: This EEG recording is within normal limits. There is no evidence of epileptiform activity identified during the study. Comment: A normal EEG does not preclude a diagnosis of seizure or epilepsy. If the clinical suspicion for seizure activity is high, serial EEGs or perhaps a prolonged recording may increase the yield. Please correlate clinically.
[2017-03-24] MEDS ORDERED: *HR* Heparin 5,000 UNIT/ML VIAL SQ SCH (14:00)
[2017-03-24] MEDS ORDERED: clonazePAM 1 MG TABLET PO SCH (15:00)
--- NOTE | 2017-03-25 10:00 | Electrocardiograph Report ---
[place] [id number] Test Date: 2017-03-23 Pat Name: Naseem Guan Department: 104 Room: [facility] Gender: M [employer] Rep: KESHAWN : 1990 Requested By: Jesse Spencer Order Number: [id number] Reading MD: Izaiah Mcdaniel DO Measurements Intervals [place] Rate: 62 P: 57 VA: 144 QRS: 70 QRSD: 93 T: 50 QT: 379 QTc: 383 Interpretive Statements SINUS RHYTHM Electronically Signed On 03-25-2017 9:58:25 EST by Izaiah Mcdaniel DO
--- NOTE | 2017-03-26 14:04 | Discharge Summary ---
Date of Encounter: 03/24/17 Time of Encounter: 08:40 - Discharge Diagnosis (1) Nausea & vomiting Priority: Primary Status: Acute Qualifiers: Vomiting type: unspecified Vomiting Intractability: non-intractable Qualified Code(s): R11.2 - Nausea with vomiting, unspecified (2) Cannabis abuse Priority: Secondary Status: Chronic (3) Hypokalemia Priority: Secondary Status: Acute (4) Elevated lactic acid level Priority: Secondary Status: Resolved (5) Leukocytosis Priority: Secondary Status: Acute Qualifiers: Leukocytosis type: unspecified Qualified Code(s): D72.829 - Elevated white blood cell count, unspecified (6) Seizure Priority: Secondary Status: Acute (7) History of epilepsy Priority: Secondary Status: Chronic (8) DVT prophylaxis Priority: Secondary Status: Acute - Discharge Medications Home Medications: Lacosamide [Vimpat] 100 mg PO BID 12/17/16 [History] LevETIRAcetam [Keppra] 1,500 mg PO BID 12/17/16 [History] Omeprazole [PriLOSEC] 20 mg PO DAILY 12/17/16 [History] Promethazine [Phenergan] 25 mg PO Q6H PRN 12/17/16 [History] Citalopram Hydrobromide [Citalopram HBr] 10 mg PO DAILY 02/11/17 [History] clonazePAM [Klonopin] 1 mg PO TID 02/11/17 [History] Allergies/Adverse Reactions: 3 Allergy/AdvReac Type Severity Reaction Status Date / Time alprazolam [From Xanax] Allergy Seizure Verified 03/23/17 13:59 decongestant AdvReac Vomiting Uncoded 03/23/17 10:02 Procedures/tests Complete & Pending: Procedures Performed prior 72 hours Category Date Time Status CT abd pelvis w iv no oral [CT] Stat Cat Scan 03/23/17 22:49 Completed Date of admission: 03/23/17 14:53 Primary care physician: Joseph Carpenter, Consults: 03/24/17 12:09 Consult to Interpret Exam [CONS] Routine Consulting Provider: Joseph Farley Consult to Interpret Exam: Interpret EEG - Patient Status Disposition: Left Against Medical Advice Condition: Fair - Discharge Instructions Follow Up With: Joseph Carpenter, DO [Primary Care Provider] - Hospital course: Pt was admitted for n/v likely secondary to chronic canabis use. Given initial lab findings, pt was empirically started on IV abx and IV fluids. Pt responded appropriately to therapy. His hospital course was complicated by generalized tonic clonic seizure require ativan administration. I saw the patient this morning and was fatigued. Plan was discussed with tentative discharge in am. Pt agreed with the plan. I was informed later that the patient wanted to speak to a physician, as I got to the unit, patient had left against medical advise. - Time Spent with Patient Total time spent providing and/or coordinating discharge services: - Constitutional Vitals: Temp Pulse Resp BP Pulse Ox 98.3 F 73 14 120/75 97 03/24/17 16:00 03/24/17 15:36 03/24/17 14:37 03/24/17 11:37 03/24/17 14:37 General appearance: Present: A&O X 3 (fatigued), no acute distress, underweight , answers questions appropriately - VTE Reasons for not Prescribing Prophylaxis: Treatment not Indicated - Low risk for VTE
== END 2017-03-24 16:16 | disposition left against medical advice (07) | DRG 249 ==
LOC: EMEROO 09:47 → 3ANU 09:47 → ICNU 22:53
PROVIDERS: ADMIT Internal Medicine Cardiovascular Disease; ATTEND Internal Medicine

== ENCOUNTER 2019-01-19 10:38 | Observation (INO) ==
[2019-01-19] MEDS ORDERED: 0.9 % Sodium Chloride 1,000 ML IVC ONE ×2 (11:20→14:31)
[2019-01-19] MEDS ORDERED: Ondansetron 4 MG/2 ML VIAL IVP ONE (11:20)
[2019-01-19 11:58] LABS: Basophils # 0.1 K/mcL (0.0-0.2); Basophils % 0.4 %; Eosinophils % 0.1 %; Hematocrit 44.8 % (37.5-50.1); Hemoglobin 15.3 g/dL (12.9-16.9); Immature Granulocytes % 1.1 % (0-4); Lymphocytes # 2.5 K/mcL (0.6-4.6); Mean Corpuscular HGB Conc 34.2 g/dL (31.6-35.5); Mean Corpuscular Hemoglobin 31.6 pg (28.0-33.3); Mean Corpuscular Volume 92.6 fL (83.0-100.0); Mean Platelet Volume 10.2 fL (9.4-12.4); Monocytes # 2.1 K/mcL (0.0-1.3); Monocytes % 8.5 %; Neutrophils # 19.8 K/mcL (1.6-8.9); Platelet Count 197 K/mcL (140-400); Red Blood Count 4.84 M/mcL (4.19-5.50); Red Cell Distribution Width 12.2 % (11.5-14.5); Segmented Neutrophils % 79.9 %; White Blood Count 24.7 K/mcL (4.3-11.1)
[2019-01-19] MEDS ORDERED: Isovue-370 500 ML BOTTLE IVP ONE ×2 (12:17→14:29)
[2019-01-19 12:22] LABS: BUN/Creatinine Ratio 18 (6-26); Blood Urea Nitrogen 17 mg/dL (6-20); Calcium 10.1 mg/dL (8.6-10.3); Carbon Dioxide 19 mEq/L (23-29); Chloride 101 mEq/L (98-107); Glucose 239 mg/dL (70-105); Magnesium 1.7 mg/dL (1.6-2.6); Osmolality,Calculated 295 (280-300); Phosphorous < 1.0 mg/dL (2.7-4.5); Potassium 3.6 mEq/L (3.5-5.1); Sodium 138 mEq/L (136-145); Troponin I < 0.03 ng/mL (< 0.04); eGFR For African Americans > 60 (> 60); eGFR For Non-African Americans > 60 (> 60)
[2019-01-19 12:29] LABS: VBG HCO3 20 mEq/L (21-27); VBG PCO2 34 mmHg (41-51); VBG PH 7.38 pH Units (7.32-7.42); VBG PO2 57 mmHg (25-50)
[2019-01-19 12:52] LABS: Bilirubin,Urine Negative (Negative); Blood,Urine Negative (Negative); Clarity,Urine Clear (Clear); Color,Urine Yellow (Yellow); Glucose,Urine (UA) 500 mg/dL (Normal); Ketones,Urine 40 mg/dL (Negative); Leukocyte Esterase,Urine Negative (Negative); Nitrite,Urine Negative (Negative); Protein,Urine Trace mg/dL (Neg-Trace); Specific Gravity,Urine 1.026 (1.010-1.025); Urobilinogen,Urine Normal (Normal)
[2019-01-19 13:01] LABS: Amphetamine Screen,Urine Negative ng/mL (Cutoff=1000); Barbiturate Screen,Urine Negative ng/mL (Cutoff=200); Benzodiazepines Screen,Urine Negative ng/mL (Cutoff=200); Cannabinoid Screen,Urine Positive ng/mL (Cutoff = 50); Cocaine Screen,Urine Negative ng/mL (Cutoff= 300); Opiate Screen,Urine Negative ng/mL (Cutoff=300); Phencyclidine Screen,Urine Negative ng/mL (Cutoff=25)
[2019-01-19 13:26] LABS: Estimated Average Glucose 114 mg/dl
[2019-01-19] MEDS ORDERED: Piperacillin/Tazobactam 3.375 GM in 0.9 % Sodium Chloride Mini Bag 100 ML IVPB ONE (15:00)
[2019-01-19] MEDS ORDERED: Haloperidol Lactate 5 MG/ML VIAL IVP ONE (16:37)
[2019-01-19] MEDS ORDERED: *HR* Promethazine 25 MG/ML VIAL IVP ONE (16:42)
[2019-01-19] MEDS ORDERED: Dextrose Gel 15 GM/37.5 ML TUBE PO PRN ×2 (17:52)
[2019-01-19] MEDS ORDERED: D5% in Water 1,000 ML IVC PRN (17:52)
[2019-01-19] MEDS ORDERED: *HR* Dextrose 50 % in Water (Syg) 50 ML SYRINGE IVP PRN (17:52)
[2019-01-19] MEDS ORDERED: levETIRAcetam 250 MG TABLET PO SCH (18:00)
[2019-01-19] MEDS ORDERED: Naloxone 0.4 MG/ML INJ IVP PRN (18:01)
[2019-01-19] MEDS ORDERED: *HR* Promethazine 25 MG/ML VIAL IVP PRN (18:01)
[2019-01-19] MEDS ORDERED: Ondansetron 4 MG/2 ML VIAL IVP PRN (18:01)
[2019-01-19] MEDS: Pantoprazole 40 MG VIAL IVP SCH (18:05)
[2019-01-19 19:02] LABS: BUN/Creatinine Ratio 13 (6-26); Blood Urea Nitrogen 11 mg/dL (6-20); Calcium 10.2 mg/dL (8.6-10.3); Carbon Dioxide 18 mEq/L (23-29); Chloride 104 mEq/L (98-107); Glucose 121 mg/dL (70-105); Osmolality,Calculated 289 (280-300); Potassium 3.8 mEq/L (3.5-5.1); Sodium 139 mEq/L (136-145); eGFR For African Americans > 60 (> 60); eGFR For Non-African Americans > 60 (> 60)
[2019-01-19] MEDS ORDERED: Divalproex (24 HR) 500 MG TABLET PO SCH (21:00)
[2019-01-19] MEDS: 0.9 % Sodium Chloride 1,000 ML IVC SCH (22:31)
[2019-01-19] MEDS: *HR* Heparin 5,000 UNIT/ML VIAL SQ SCH (22:31)
[2019-01-19] MEDS: Insulin LISPRO 300 UNITS/3 ML VIAL SQ SCH (22:40)
[2019-01-19] MEDS: Divalproex (24 HR) 500 MG TABLET PO SCH (22:40)
[2019-01-19] MEDS: Piperacillin/Tazobactam 3.375 GM in 0.9 % Sodium Chloride Mini Bag 100 ML IVPB SCH (23:12)
[2019-01-19] MEDS: levETIRAcetam 250 MG TABLET PO SCH (23:12)
[2019-01-20 04:14] LABS: Basophils % 0.1 %; Eosinophils % 0.1 %; Hematocrit 39.1 % (37.5-50.1); Immature Granulocytes % 0.3 % (0-4); Lymphocytes # 1.3 K/mcL (0.6-4.6); Mean Corpuscular HGB Conc 34.5 g/dL (31.6-35.5); Mean Corpuscular Volume 92.7 fL (83.0-100.0); Mean Platelet Volume 9.7 fL (9.4-12.4); Monocytes # 1.3 K/mcL (0.0-1.3); Monocytes % 10.4 %; Neutrophils # 9.9 K/mcL (1.6-8.9); Platelet Count 147 K/mcL (140-400); Red Blood Count 4.22 M/mcL (4.19-5.50); Red Cell Distribution Width 12.7 % (11.5-14.5); Segmented Neutrophils % 79.1 %; White Blood Count 12.5 K/mcL (4.3-11.1)
[2019-01-20 04:16] LABS: Hemoglobin 13.5 g/dL (12.9-16.9)
[2019-01-20 04:33] LABS: Albumin 4.7 g/dL (3.5-5.7); Albumin/Globulin Ratio 2.1 (1.1-2.2); Bilirubin,Direct 0.1 mg/dL (0.0-0.2); Bilirubin,Indirect 0.4 mg/dL (0.0-1.2); Bilirubin,Total 0.5 mg/dL (0.3-1.0); Globulin 2.2 g/dL (2.4-3.5); Total Protein 6.9 g/dL (6.4-8.9)
[2019-01-20 04:34] LABS: BUN/Creatinine Ratio 11 (6-26); Blood Urea Nitrogen 8 mg/dL (6-20); Calcium 9.1 mg/dL (8.6-10.3); Carbon Dioxide 19 mEq/L (23-29); Chloride 107 mEq/L (98-107); Glucose 114 mg/dL (70-105); Magnesium 1.9 mg/dL (1.6-2.6); Osmolality,Calculated 283 (280-300); Phosphorous 4.7 mg/dL (2.7-4.5); Potassium 3.9 mEq/L (3.5-5.1); Sodium 137 mEq/L (136-145); eGFR For African Americans > 60 (> 60); eGFR For Non-African Americans > 60 (> 60)
[2019-01-20] MEDS: *HR* Heparin 5,000 UNIT/ML VIAL SQ SCH ×2 (05:21→13:23)
[2019-01-20] MEDS: Insulin LISPRO 300 UNITS/3 ML VIAL SQ SCH ×2 (07:58→11:27)
[2019-01-20] MEDS: Divalproex (24 HR) 500 MG TABLET PO SCH (08:15)
[2019-01-20] MEDS: Piperacillin/Tazobactam 3.375 GM in 0.9 % Sodium Chloride Mini Bag 100 ML IVPB SCH (08:15)
[2019-01-20] MEDS: 0.9 % Sodium Chloride 1,000 ML IVC SCH (08:16)
[2019-01-20] MEDS: Pantoprazole 40 MG VIAL IVP SCH (08:16)
[2019-01-20] MEDS: levETIRAcetam 250 MG TABLET PO SCH (11:23)
[2019-01-20] MEDS ORDERED: Lidocaine -MPF 2% 2 ML VIAL ONE (11:50)
[2019-01-20] MEDS ORDERED: *HR* Propofol 200 MG/20 ML VIAL IVP ONE (11:50)
[2019-01-20 13:35] LABS: Hepatitis B Surface Antigen Nonreactive (Nonreactive)
[2019-01-20 14:04] LABS: Hepatitis B Core IgM Nonreactive (Nonreactive)
[2019-01-20 14:06] LABS: Hepatitis A Antibody IgM Nonreactive (Nonreactive); Hepatitis C Virus Antibody Nonreactive (Nonreactive)
[2019-01-20 15:16] VITALS: BP 150/80
== END 2019-01-20 15:53 | disposition home or self-care (01) ==
LOC: EMEROOARM 10:38 → 3ANU 10:38 → SUATTDRO 20:04 → 3ANU 20:53
PROVIDERS: ADMIT Internal Medicine; ATTEND Internal Medicine

== ENCOUNTER 2019-09-30 12:05 | Observation (INO) ==
[2019-09-30] MEDS ORDERED: 0.9 % Sodium Chloride 1,000 ML IVC ONE (12:37)
[2019-09-30] MEDS ORDERED: levETIRAcetam 1,000 MG in 0.9 % Sodium Chloride 100 ML IVPB ONE (12:37)
[2019-09-30 12:52] LABS: Basophils # 0.1 K/mcL (0.0-0.2); Basophils % 0.9 %; Eosinophils % 0.5 %; Hematocrit 43.1 % (37.5-50.1); Hemoglobin 14.8 g/dL (12.9-16.9); Immature Granulocytes % 0.3 % (0-4); Lymphocytes # 2.9 K/mcL (0.6-4.6); Lymphocytes % 43.2 %; Mean Corpuscular HGB Conc 34.3 g/dL (31.6-35.5); Mean Corpuscular Volume 93.3 fL (83.0-100.0); Mean Platelet Volume 10.4 fL (9.4-12.4); Monocytes # 0.6 K/mcL (0.0-1.3); Monocytes % 8.6 %; Neutrophils # 3.1 K/mcL (1.6-8.9); Platelet Count 219 K/mcL (140-400); Red Blood Count 4.62 M/mcL (4.19-5.50); Red Cell Distribution Width 12.9 % (11.5-14.5); Segmented Neutrophils % 46.5 %; White Blood Count 6.6 K/mcL (4.3-11.1)
[2019-09-30 13:00] LABS: Lipase 24 Units/L (11-82)
[2019-09-30 13:01] LABS: Alanine Aminotransferase 9 Units/L (7-52); Albumin 4.7 g/dL (3.5-5.7); Albumin/Globulin Ratio 1.9 (1.1-2.2); Alkaline Phosphatase 43 Units/L (34-104); Aspartate Amino Transferase 16 Units/L (13-39); BUN/Creatinine Ratio 9 (6-26); Bilirubin,Total 0.5 mg/dL (0.3-1.0); Blood Urea Nitrogen 9 mg/dL (6-20); Calcium 9.3 mg/dL (8.6-10.3); Carbon Dioxide 18 mEq/L (23-29); Chloride 105 mEq/L (98-107); Globulin 2.5 g/dL (2.4-3.5); Glucose 165 mg/dL (70-105); Osmolality,Calculated 288 (280-300); Potassium 3.8 mEq/L (3.5-5.1); Sodium 138 mEq/L (136-145); Total Protein 7.2 g/dL (6.4-8.9); eGFR For African Americans > 60 (> 60); eGFR For Non-African Americans > 60 (> 60)
[2019-09-30] MEDS ORDERED: Ondansetron 4 MG/2 ML VIAL IVP ONE (13:19)
[2019-09-30 13:28] LABS: Bilirubin,Urine Negative (Negative); Blood,Urine Negative (Negative); Clarity,Urine Clear (Clear); Color,Urine Light-Yellow (Yellow); Glucose,Urine (UA) 150 mg/dL (Normal); Ketones,Urine 100 mg/dL (Negative); Leukocyte Esterase,Urine Negative (Negative); Nitrite,Urine Negative (Negative); PH,Urine 8.5 pH Units (5.0-8.0); Protein,Urine Trace mg/dL (Neg-Trace); Specific Gravity,Urine 1.025 (1.010-1.025); Urobilinogen,Urine Normal (Normal)
[2019-09-30 13:53] LABS: Amphetamine Screen,Urine Negative ng/mL (Cutoff=1000); Barbiturate Screen,Urine Negative ng/mL (Cutoff=200); Benzodiazepines Screen,Urine Negative ng/mL (Cutoff=200); Cannabinoid Screen,Urine Positive ng/mL (Cutoff = 50); Cocaine Screen,Urine Negative ng/mL (Cutoff= 300); Opiate Screen,Urine Negative ng/mL (Cutoff=300); Phencyclidine Screen,Urine Negative ng/mL (Cutoff=25)
[2019-09-30] MEDS ORDERED: *HR* Promethazine 25 MG/ML VIAL IVP ONE (15:50)
[2019-09-30] MEDS ORDERED: *HR* LORazepam 2 MG/ML VIAL ONE (17:08)
[2019-09-30] MEDS ORDERED: *HR* LORazepam 2 MG/ML VIAL IVP ONE (17:12)
[2019-09-30] MEDS ORDERED: 0.9 % Sodium Chloride 1,000 ML ONE (17:14)
[2019-09-30] MEDS: 0.9 % Sodium Chloride 1,000 ML IV ONE ×2 (17:15→17:20)
[2019-09-30 17:36] LABS: ABG Base Excess -25 mEq/L (-2 to 3); ABG HCO3 6 mEq/L (21-27); ABG Oxygen Saturation 93 % (95-98); ABG PCO2 26 mmHg (35-45); ABG PH 6.98 pH Units (7.32-7.45); ABG PO2 102 mmHg (85-104); ABG TCO2 7 mEq/L (20-26)
[2019-09-30] MEDS ORDERED: Sodium Bicarbonate 50 MEQ/50 ML VIAL IVP ONE (17:36)
[2019-09-30 17:37] LABS: Acetaminophen < 10 mcg/mL (10-20); Ethanol < 10 mg/dL (Less than 10); Salicylate < 2.5 mg/dL (15.0-30.0)
[2019-09-30] MEDS ORDERED: Isovue-370 500 ML BOTTLE IVP ONE (17:49)
[2019-09-30] MEDS: Sodium Bicarbonate 150 MEQ in D5% in Water 1,000 ML IVC SCH (18:05)
[2019-09-30] MEDS ORDERED: Naloxone 0.4 MG/ML INJ IVP PRN ×2 (21:03→21:07)
[2019-09-30] MEDS ORDERED: Acetaminophen 325 MG TABLET PO PRN (21:03)
[2019-09-30] MEDS ORDERED: Ondansetron 4 MG/2 ML VIAL IVP PRN (21:07)
[2019-09-30] MEDS ORDERED: *HR* Promethazine 25 MG/ML VIAL IVP PRN (21:07)
[2019-09-30] MEDS ORDERED: *HR* LORazepam 2 MG/ML VIAL IM PRN (21:12)
[2019-09-30] MEDS ORDERED: *HR* LORazepam 2 MG/ML VIAL IVP PRN (21:13)
[2019-09-30] MEDS ORDERED: Divalproex (24 HR) 500 MG TABLET PO SCH (21:15)
[2019-09-30] MEDS ORDERED: Sodium Bicarbonate 50 MEQ in 0.45 % Sodium Chloride 1,000 ML IVC SCH (21:15)
[2019-09-30 21:37] LABS: Phosphorous 1.2 mg/dL (2.7-4.5)
[2019-09-30 21:50] LABS: Thyroid Stimulating Hormone 1.721 mcIU/mL (0.340-5.600)
[2019-09-30] MEDS: Pantoprazole 40 MG VIAL IVP SCH (22:52)
[2019-09-30 23:36] LABS: ABG PCO2 < 13 mmHg (35-45); ABG PO2 111 mmHg (85-104)
[2019-10-01] MEDS: Sodium Bicarbonate 150 MEQ in D5% in Water 1,000 ML IVC SCH ×3 (04:50→15:15)
[2019-10-01 05:20] LABS: BUN/Creatinine Ratio 6 (6-26); Blood Urea Nitrogen 5 mg/dL (6-20); Carbon Dioxide 17 mEq/L (23-29); Chloride 107 mEq/L (98-107); Glucose 110 mg/dL (70-105); Osmolality,Calculated 284 (280-300); Potassium 3.2 mEq/L (3.5-5.1); Sodium 138 mEq/L (136-145); eGFR For African Americans > 60 (> 60); eGFR For Non-African Americans > 60 (> 60)
[2019-10-01] MEDS ORDERED: *HR* Heparin 5,000 UNIT/ML VIAL SQ SCH (06:00)
[2019-10-01] MEDS: Pantoprazole 40 MG VIAL IVP SCH (07:52)
[2019-10-01] MEDS ORDERED: levETIRAcetam 1,000 MG in 0.9 % Sodium Chloride 100 ML IVPB SCH (09:00)
[2019-10-01 12:02] VITALS: BP 112/66
== END 2019-10-01 16:55 | disposition home or self-care (01) ==
LOC: ICNU 12:05 → EMEROOARM 12:05 → SUATTDRO 21:51 → ICNU 22:17
PROVIDERS: ADMIT Family Medicine; ATTEND Internal Medicine

== ENCOUNTER 2020-03-18 13:08 | Observation (INO) ==
[2020-03-18 15:09] LABS: Basophils # 0.1 K/mcL (0.0-0.2); Basophils % 0.4 %; Hematocrit 44.3 % (37.5-50.1); Hemoglobin 14.8 g/dL (12.9-16.9); Immature Granulocytes % 2.9 % (0-4); Lymphocytes % 8.5 %; Mean Corpuscular HGB Conc 33.4 g/dL (31.6-35.5); Mean Corpuscular Hemoglobin 30.8 pg (28.0-33.3); Mean Corpuscular Volume 92.3 fL (83.0-100.0); Mean Platelet Volume 9.8 fL (9.4-12.4); Monocytes # 1.9 K/mcL (0.0-1.3); Monocytes % 8.3 %; Neutrophils # 18.5 K/mcL (1.6-8.9); Platelet Count 182 K/mcL (140-400); Red Cell Distribution Width 12.1 % (11.5-14.5); Segmented Neutrophils % 79.9 %; White Blood Count 23.2 K/mcL (4.3-11.1)
[2020-03-18 15:49] LABS: Bilirubin,Urine Negative (Negative); Blood,Urine Negative (Negative); Clarity,Urine Clear (Clear); Color,Urine Light-Yellow (Yellow); Glucose,Urine (UA) 300 mg/dL (Normal); Ketones,Urine 60 mg/dL (Negative); Leukocyte Esterase,Urine Negative (Negative); Mucus,Urine Few per lpf (None-Few); Nitrite,Urine Negative (Negative); PH,Urine 8.5 pH Units (5.0-8.0); Protein,Urine 30 mg/dL (Neg-Trace); RBC,Urine 0-3 per hpf (0-3); Specific Gravity,Urine 1.028 (1.010-1.025); Urobilinogen,Urine Normal (Normal); WBC,Urine 0-3 per hpf (0-3)
[2020-03-18 15:53] LABS: Alanine Aminotransferase 13 Units/L (7-52); Albumin 4.6 g/dL (3.5-5.7); Albumin/Globulin Ratio 1.7 (1.1-2.2); Alkaline Phosphatase 48 Units/L (34-104); Aspartate Amino Transferase 21 Units/L (13-39); BUN/Creatinine Ratio 20 (6-26); Bilirubin,Total 0.3 mg/dL (0.3-1.0); Blood Urea Nitrogen 17 mg/dL (6-20); Calcium 9.3 mg/dL (8.6-10.3); Carbon Dioxide 12 mEq/L (23-29); Chloride 103 mEq/L (98-107); Globulin 2.7 g/dL (2.4-3.5); Glucose 192 mg/dL (70-105); Magnesium 1.6 mg/dL (1.6-2.6); Osmolality,Calculated 287 (280-300); Potassium 4.1 mEq/L (3.5-5.1); Sodium 135 mEq/L (136-145); Total Protein 7.3 g/dL (6.4-8.9); eGFR For African Americans > 60 (> 60); eGFR For Non-African Americans > 60 (> 60)
[2020-03-18] MEDS ORDERED: 0.9 % Sodium Chloride 1,000 ML IVC ONE ×2 (15:55→21:42)
[2020-03-18 15:58] LABS: Amphetamine Screen,Urine Negative ng/mL (Cutoff=1000); Barbiturate Screen,Urine Negative ng/mL (Cutoff=200); Benzodiazepines Screen,Urine Positive ng/mL (Cutoff=200); Cannabinoid Screen,Urine Positive ng/mL (Cutoff = 50); Cocaine Screen,Urine Negative ng/mL (Cutoff= 300); Opiate Screen,Urine Negative ng/mL (Cutoff=300); Phencyclidine Screen,Urine Negative ng/mL (Cutoff=25)
[2020-03-18 16:46] LABS: VBG HCO3 17 mEq/L (21-27); VBG PCO2 23 mmHg (41-51); VBG PH 7.48 pH Units (7.32-7.42); VBG PO2 132 mmHg (25-50)
[2020-03-18] MEDS ORDERED: Naloxone 0.4 MG/ML INJ IVP PRN (16:51)
[2020-03-18] MEDS ORDERED: Ondansetron 4 MG/2 ML VIAL IVP PRN (16:51)
[2020-03-18] MEDS ORDERED: D5% in Water 1,000 ML IVC PRN (17:00)
[2020-03-18] MEDS ORDERED: Dextrose Gel 15 GM/37.5 ML TUBE PO PRN ×2 (17:00)
[2020-03-18] MEDS ORDERED: 0.9 % Sodium Chloride 1,000 ML IVC SCH (17:00)
[2020-03-18] MEDS ORDERED: *HR* Dextrose 50 % in Water (Vial) 50 ML VIAL IVP PRN (17:00)
[2020-03-18] MEDS ORDERED: *HR* LORazepam 2 MG/ML VIAL IVP PRN (17:21)
[2020-03-18] MEDS ORDERED: levoFLOXacin 750 MG/150 ML 750 MG/150 ML BAG IVPB SCH (18:00)
[2020-03-18 18:03] LABS: Phosphorous < 1.0 mg/dL (2.7-4.5)
[2020-03-18 18:08] LABS: Estimated Average Glucose 117 mg/dl; Hemoglobin A1C 5.7 %
[2020-03-18] MEDS: 0.9 % Sodium Chloride 1,000 ML IVC SCH (20:04)
[2020-03-18] MEDS: Insulin LISPRO 300 UNITS/3 ML VIAL SQ SCH ×2 (20:16→23:12)
[2020-03-18] MEDS: *HR* Heparin 5,000 UNIT/ML VIAL SQ SCH (20:16)
[2020-03-18] MEDS: Valproic Acid INJ 500 MG in 0.9 % Sodium Chloride 100 ML IVPB SCH (20:19)
[2020-03-18] MEDS: Pantoprazole 40 MG VIAL IVP SCH (21:17)
[2020-03-18 22:03] LABS: Creatine Kinase 79 Units/L (30-223)
[2020-03-18 22:05] LABS: Troponin I < 0.03 ng/mL (< 0.04)
[2020-03-19 02:34] LABS: Basophils % 0.1 %; Eosinophils # 0.1 K/mcL (0.0-0.6); Eosinophils % 0.7 %; Hematocrit 40.4 % (37.5-50.1); Hemoglobin 14.2 g/dL (12.9-16.9); Immature Granulocytes % 0.6 % (0-4); Lymphocytes # 1.1 K/mcL (0.6-4.6); Lymphocytes % 7.2 %; Mean Corpuscular HGB Conc 35.1 g/dL (31.6-35.5); Mean Corpuscular Hemoglobin 31.3 pg (28.0-33.3); Mean Platelet Volume 9.5 fL (9.4-12.4); Monocytes % 6.8 %; Neutrophils # 12.5 K/mcL (1.6-8.9); Platelet Count 178 K/mcL (140-400); Red Blood Count 4.54 M/mcL (4.19-5.50); Red Cell Distribution Width 12.5 % (11.5-14.5); Segmented Neutrophils % 84.6 %; White Blood Count 14.8 K/mcL (4.3-11.1)
[2020-03-19 02:52] LABS: Alanine Aminotransferase 12 Units/L (7-52); Albumin 4.5 g/dL (3.5-5.7); Albumin/Globulin Ratio 1.8 (1.1-2.2); Alkaline Phosphatase 40 Units/L (34-104); Aspartate Amino Transferase 17 Units/L (13-39); BUN/Creatinine Ratio 11 (6-26); Bilirubin,Total 0.4 mg/dL (0.3-1.0); Blood Urea Nitrogen 9 mg/dL (6-20); Calcium 8.8 mg/dL (8.6-10.3); Carbon Dioxide 14 mEq/L (23-29); Chloride 106 mEq/L (98-107); Globulin 2.5 g/dL (2.4-3.5); Glucose 108 mg/dL (70-105); Magnesium 1.7 mg/dL (1.6-2.6); Osmolality,Calculated 279 (280-300); Potassium 3.4 mEq/L (3.5-5.1); Sodium 135 mEq/L (136-145); eGFR For African Americans > 60 (> 60); eGFR For Non-African Americans > 60 (> 60)
[2020-03-19 03:16] LABS: Platelet Estimate Normal (Normal)
[2020-03-19] MEDS: Valproic Acid INJ 500 MG in 0.9 % Sodium Chloride 100 ML IVPB SCH (03:38)
[2020-03-19] MEDS: Insulin LISPRO 300 UNITS/3 ML VIAL SQ SCH (05:26)
[2020-03-19] MEDS: *HR* Heparin 5,000 UNIT/ML VIAL SQ SCH (05:27)
[2020-03-19] MEDS: 0.9 % Sodium Chloride 1,000 ML IVC SCH (05:27)
[2020-03-19] MEDS: Pantoprazole 40 MG VIAL IVP SCH (08:02)
[2020-03-19] MEDS ORDERED: *HR* LORazepam 2 MG/ML VIAL IVP PRN (08:06)
[2020-03-19] MEDS ORDERED: Isovue-370 500 ML BOTTLE IVP ONE (08:15)
[2020-03-19] MEDS ORDERED: hydrOXYzine pamoate 25 MG CAPSULE PO PRN (08:16)
[2020-03-19] MEDS ORDERED: Clobazam [Onfi] 10 MG PO SCH (09:00)
[2020-03-19] MEDS ORDERED: Loratadine 10 MG TABLET PO SCH (09:00)
[2020-03-19] MEDS ORDERED: Lactobacillus 1 EACH CAP.SPRINK PO SCH (09:00)
[2020-03-19 11:45] VITALS: BP 134/90
== END 2020-03-19 12:07 | disposition left against medical advice (07) ==
LOC: 2NNU 13:08 → EMEROOARM 13:08 → SUATTDRO 16:30 → 2NNU 18:09
PROVIDERS: ADMIT Internal Medicine; ATTEND Internal Medicine

== ENCOUNTER 2020-08-01 14:40 | Observation (INO) ==
[2020-08-01] MEDS ORDERED: Ondansetron 4 MG/2 ML VIAL IVP ONE (15:59)
[2020-08-01] MEDS ORDERED: 0.9 % Sodium Chloride 1,000 ML IVC ONE ×2 (15:59→17:57)
[2020-08-01 16:35] LABS: Basophils # 0.1 K/mcL (0.0-0.2); Basophils % 0.4 %; Hematocrit 46.8 % (37.5-50.1); Hemoglobin 15.8 g/dL (12.9-16.9); Immature Granulocytes % 1.1 % (0-4); Lymphocytes # 1.9 K/mcL (0.6-4.6); Lymphocytes % 8.9 %; Mean Corpuscular HGB Conc 33.8 g/dL (31.6-35.5); Mean Corpuscular Hemoglobin 31.5 pg (28.0-33.3); Mean Corpuscular Volume 93.2 fL (83.0-100.0); Mean Platelet Volume 10.2 fL (9.4-12.4); Monocytes # 1.3 K/mcL (0.0-1.3); Monocytes % 6.2 %; Neutrophils # 17.8 K/mcL (1.6-8.9); Platelet Count 193 K/mcL (140-400); Red Blood Count 5.02 M/mcL (4.19-5.50); Red Cell Distribution Width 12.5 % (11.5-14.5); Segmented Neutrophils % 83.4 %; White Blood Count 21.3 K/mcL (4.3-11.1)
[2020-08-01 16:48] LABS: Bilirubin,Urine Negative (Negative); Blood,Urine Negative (Negative); Clarity,Urine Clear (Clear); Color,Urine Yellow (Yellow); Glucose,Urine (UA) 100 mg/dL (Normal); Ketones,Urine 150 mg/dL (Negative); Leukocyte Esterase,Urine Negative (Negative); Mucus,Urine Few per lpf (None-Few); Nitrite,Urine Negative (Negative); Protein,Urine 50 mg/dL (Neg-Trace); RBC,Urine 0-3 per hpf (0-3); Specific Gravity,Urine > 1.030 (1.010-1.025); Squamous Epithelial Cell,Urine Few per hpf (None-Few); Urobilinogen,Urine Normal (Normal); WBC,Urine 0-3 per hpf (0-3)
[2020-08-01 17:05] LABS: Amphetamine Screen,Urine Negative ng/mL (Cutoff=1000); Barbiturate Screen,Urine Negative ng/mL (Cutoff=200); Benzodiazepines Screen,Urine Positive ng/mL (Cutoff=200); Cannabinoid Screen,Urine Positive ng/mL (Cutoff = 50); Cocaine Screen,Urine Negative ng/mL (Cutoff= 300); Opiate Screen,Urine Negative ng/mL (Cutoff=300); Phencyclidine Screen,Urine Negative ng/mL (Cutoff=25)
[2020-08-01 17:06] LABS: Alanine Aminotransferase 10 Units/L (7-52); Albumin 5.2 g/dL (3.5-5.7); Alkaline Phosphatase 55 Units/L (34-104); Aspartate Amino Transferase 16 Units/L (13-39); BUN/Creatinine Ratio 15 (6-26); Bilirubin,Indirect 0.4 mg/dL (0.0-1.0); Bilirubin,Total 0.4 mg/dL (0.3-1.0); Blood Urea Nitrogen 13 mg/dL (6-20); Calcium 9.8 mg/dL (8.6-10.3); Carbon Dioxide 16 mEq/L (23-29); Chloride 106 mEq/L (98-107); Globulin 2.6 g/dL (2.4-3.5); Glucose 203 mg/dL (70-105); Lipase 26 Units/L (11-82); Osmolality,Calculated 292 (280-300); Potassium 3.8 mEq/L (3.5-5.1); Sodium 138 mEq/L (136-145); Total Protein 7.8 g/dL (6.4-8.9); eGFR For African Americans > 60 (> 60); eGFR For Non-African Americans > 60 (> 60)
[2020-08-01] MEDS ORDERED: levETIRAcetam 250 MG TABLET PO ONE (17:15)
[2020-08-01] MEDS ORDERED: Divalproex (12 HR) 500 MG TABLET PO ONE (17:15)
[2020-08-01] MEDS ORDERED: *HR* Promethazine 25 MG/ML VIAL IM ONE (17:40)
[2020-08-01] MEDS ORDERED: cefTRIAXone 1,000 MG in Water for inj. (sterile) 10 ML IVP ONE (19:16)
[2020-08-01] MEDS ORDERED: Capsaicin 0.025% 60 GM TUBE TP ONE (19:24)
[2020-08-01] MEDS ORDERED: Prochlorperazine 10 MG/2 ML VIAL IVP ONE (20:27)
[2020-08-01] MEDS ORDERED: Naloxone 0.4 MG/ML INJ IVP PRN (20:27)
[2020-08-01] MEDS ORDERED: Ondansetron 4 MG/2 ML VIAL IVP PRN (20:37)
[2020-08-01] MEDS ORDERED: *HR* Promethazine 25 MG/ML VIAL IM PRN (20:37)
[2020-08-01] MEDS ORDERED: Acetaminophen 325 MG TABLET PO PRN (20:37)
[2020-08-01] MEDS ORDERED: *HR* Dextrose 50 % in Water (Vial) 50 ML VIAL IVP PRN (20:42)
[2020-08-01] MEDS ORDERED: D5% in Water 1,000 ML IVC PRN (20:42)
[2020-08-01] MEDS ORDERED: Dextrose Gel 15 GM/37.5 ML TUBE PO PRN ×2 (20:42)
[2020-08-01] MEDS ORDERED: Ringers Solution, Lactated 1,000 ML IVC SCH (20:45)
[2020-08-01] MEDS ORDERED: Pantoprazole 40 MG VIAL IVP SCH (21:30)
[2020-08-01 22:39] LABS: Magnesium 1.9 mg/dL (1.6-2.6); Phosphorous 1.4 mg/dL (2.7-4.5)
[2020-08-02] MEDS: Piperacillin/Tazobactam 3.375 GM in 0.9 % Sodium Chloride Mini Bag 100 ML IVPB SCH ×2 (00:08→05:16)
[2020-08-02] MEDS: Insulin LISPRO 300 UNITS/3 ML VIAL SUBQ SCH ×2 (00:13→05:08)
[2020-08-02 00:23] LABS: VBG HCO3 18 mEq/L (21-27); VBG PCO2 23 mmHg (41-51); VBG PH 7.51 pH Units (7.32-7.42); VBG PO2 70 mmHg (25-50)
[2020-08-02 05:46] LABS: Basophils % 0.1 %; Eosinophils % 0.1 %; Hematocrit 40.6 % (37.5-50.1); Immature Granulocytes % 0.5 % (0-4); Lymphocytes # 0.9 K/mcL (0.6-4.6); Lymphocytes % 6.4 %; Mean Corpuscular HGB Conc 34.2 g/dL (31.6-35.5); Mean Corpuscular Hemoglobin 31.1 pg (28.0-33.3); Mean Corpuscular Volume 90.8 fL (83.0-100.0); Mean Platelet Volume 10.2 fL (9.4-12.4); Monocytes # 0.7 K/mcL (0.0-1.3); Monocytes % 5.3 %; Neutrophils # 11.6 K/mcL (1.6-8.9); Platelet Count 142 K/mcL (140-400); Red Blood Count 4.47 M/mcL (4.19-5.50); Red Cell Distribution Width 12.5 % (11.5-14.5); Segmented Neutrophils % 87.6 %; White Blood Count 13.2 K/mcL (4.3-11.1)
[2020-08-02 05:51] LABS: Hemoglobin 13.9 g/dL (12.9-16.9)
[2020-08-02] MEDS ORDERED: *HR* Enoxaparin 40 MG/0.4 ML SYRINGE SQ SCH (06:00)
[2020-08-02 06:13] LABS: BUN/Creatinine Ratio 10 (6-26); Blood Urea Nitrogen 9 mg/dL (6-20); Calcium 9.5 mg/dL (8.6-10.3); Carbon Dioxide 17 mEq/L (23-29); Chloride 106 mEq/L (98-107); Glucose 117 mg/dL (70-105); Magnesium 1.8 mg/dL (1.6-2.6); Osmolality,Calculated 286 (280-300); Phosphorous 3.3 mg/dL (2.7-4.5); Potassium 3.9 mEq/L (3.5-5.1); Sodium 138 mEq/L (136-145); eGFR For African Americans > 60 (> 60); eGFR For Non-African Americans > 60 (> 60)
[2020-08-02] MEDS ORDERED: Pantoprazole 40 MG VIAL IVP SCH (09:30)
[2020-08-02] MEDS ORDERED: Divalproex (24 HR) 500 MG TABLET PO SCH (10:00)
[2020-08-02] MEDS ORDERED: levETIRAcetam 250 MG TABLET PO SCH (10:15)
[2020-08-02] MEDS ORDERED: GI Cocktail 40 ML EACH PO ONE (10:24)
[2020-08-02 10:49] LABS: Estimated Average Glucose 108 mg/dl; Hemoglobin A1C 5.4 %
[2020-08-02] MEDS ORDERED: Insulin LISPRO 300 UNITS/3 ML VIAL SUBQ SCH ×2 (11:30→21:00)
[2020-08-02 11:56] VITALS: BP 127/71
[2020-08-03 09:02] LABS: C.difficile Toxin A/B Gene PCR Not detected (Not detect); Campylobacter by PCR Not detected (Not detect); Enteroaggregative E.coli(EAEC) DETECTED (Not detect); Enteropathogenic E.coli(EPEC) Not detected (Not detect); Enterotoxigenic E.coli (ETEC) Not detected (Not detect); Plesiomonas shigelloides PCR Not detected (Not detect); Salmonella PCR Not detected (Not detect); Shigalike tox-prod E coli STEC Not detected (Not detect); Vibrio PCR Not detected (Not detect); Vibrio cholerae PCR Not detected (Not detect); Yersinia enterocolitica PCR Not detected (Not detect)
[2020-08-03 09:03] LABS: Adenovirus F 40/41 PCR Not detected (Not detect); Astrovirus PCR Not detected (Not detect); Cryptosporidium by PCR Not detected (Not detect); Cyclospora cayetanensis PCR Not detected (Not detect); E. coli O157 by PCR Not detected (Not detect); Entamoeba histolytica PCR Not detected (Not detect); Giardia lamblia PCR Not detected (Not detect); Norovirus GI/GII PCR Not detected (Not detect); Rotavirus A PCR Not detected (Not detect); Sapovirus PCR Not detected (Not detect); Shig/EnteroinvasiveE coli EIEC Not detected (Not detect)
== END 2020-08-02 15:34 | disposition home or self-care (01) ==
LOC: EMEROOARM 14:40 → 3ANU 14:40
PROVIDERS: ADMIT Family Medicine; ATTEND Family Medicine